=== PATIENT | male | born 1990 | race African-American/Black ===

== ENCOUNTER 2023-01-31 15:56 | Inpatient (IN) | payer OTHER, SELFPAY ==
[2023-01-31 16:26] VITALS: BMI 22.9
[2023-01-31 17:45] LABS: Glucose, Whole Blood 255 mg/dL (60-115)
[2023-01-31 18:00] VITALS: BP 145/88; PULSE 121; TEMP 36.7; O2SAT 100
[2023-01-31] MEDS: Nicotine Polacrilex 2 MG GUM BUCCAL ×2 (20:15→21:55)
[2023-01-31 21:34] LABS: Glucose, Whole Blood 226 mg/dL (60-115)
[2023-01-31 21:47] VITALS: BP 140/94; PULSE 94
[2023-01-31] MEDS: OLANZapine 5 MG TABLET PO (21:49)
[2023-01-31] MEDS: OLANZapine 10 MG TABLET PO (21:49)
[2023-01-31] MEDS: Metoprolol Tartrate 12.5 MG HALFTAB PO (21:49)
[2023-01-31] MEDS: Mirtazapine 7.5 MG TABLET PO (21:49)
[2023-01-31] MEDS: LORazepam 0.5 MG TABLET PO (21:49)
[2023-01-31] MEDS: busPIRone HCl 10 MG TABLET PO (21:49)
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
--- NOTE | 2023-02-01 01:19 | PC.NURSE ---
Patient refused HS sliding scale insulin.
[2023-02-01 06:52] LABS: MANUAL DIFF FLAG NO
[2023-02-01 07:10] LABS: Basophils Percent Auto 0.5 % (0-2); Eosinophils Absolute Auto 0.2 X10*3/uL (0.0-0.4); Eosinophils Percent Auto 2.6 % (0-4); Hematocrit 39.7 % (42.0-52.0); Hemoglobin 13.2 g/dl (14.0-18.0); Imm Gran Abs Auto 0.02 X10*3/uL (0.00-0.03); Imm Gran Pct Auto 0.3 % (0.0-0.4); Lymphocytes Absolute Auto 1.6 X10*3/uL (1.2-4.9); Lymphocytes Percent Auto 23.7 % (20-40); Mean Corpuscular HGB Conc 33.2 g/dl (31.0-36.0); Mean Corpuscular Hemoglobin 27.7 pg (27.0-33.0); Mean Corpuscular Volume 83.4 fL (80.0-98.0); Monocytes Absolute Auto 0.8 X10*3/uL (0.1-1.2); Monocytes Percent Auto 12.5 % (2-11); Neutrophils Percent Auto 60.4 % (45-73); Platelet Count 190 X10*3/uL (160-400); Red Blood Count 4.76 X10*6/uL (4.60-5.80); White Blood Count 6.5 X10*3/uL (4.8-10.8)
[2023-02-01 07:12] LABS: Alanine Aminotransferase 23 U/L (0-40); Alkaline Phosphatase 160 U/L (39-117); Anion Gap 13 (12-20); Aspartate Amino Transferase 19 U/L (5-37); Bilirubin Total 1.3 mg/dL (0.0-1.0); Blood Urea Nitrogen 12 mg/dL (9-16); Calcium 9.4 mg/dL (8.4-10.2); Carbon Dioxide 29 mmol/L (22-29); Chloride 100 mmol/L (96-108); Cholesterol 248 mg/dL; Creatinine Clr Calc Pharmacy 83.5; Estimated Glomerular Filt Rate > 60; Glucose Fasting 251 mg/dL (60-99); HDL Cholesterol 73 mg/dL; LDL Cholesterol Calculated 136 mg/dl; Potassium 4.1 mmol/L (3.3-5.1); Sodium 138 mmol/L (135-145); Total Protein 6.6 g/dL (6.5-8.0); Triglycerides 199 mg/dL
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
[2023-02-01 08:16] LABS: Glucose, Whole Blood 259 mg/dL (60-115)
[2023-02-01] MEDS: Insulin Lispro 100 UNIT/ML 3 ML VIAL SUBCUT ×3 (08:40→21:41)
[2023-02-01] MEDS: busPIRone HCl 10 MG TABLET PO ×3 (08:42→21:42)
[2023-02-01] MEDS: OLANZapine 5 MG TABLET PO ×2 (08:42→21:42)
[2023-02-01] MEDS: LORazepam 0.5 MG TABLET PO ×2 (08:42→21:42)
[2023-02-01] MEDS: metFORMIN HCl 1,000 MG TABLET 1000 MG PO ×2 (08:42→18:18)
[2023-02-01] MEDS: Metoprolol Tartrate 12.5 MG HALFTAB PO ×2 (08:42→21:41)
[2023-02-01] MEDS: glipiZIDE 5 MG TABLET PO (08:42)
[2023-02-01 08:48] VITALS: BP 149/86; PULSE 114; RESP 18; O2SAT 97
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
[2023-02-01 12:28] LABS: Glucose, Whole Blood 81 mg/dL (60-115)
[2023-02-01 16:53] LABS: Glucose, Whole Blood 252 mg/dL (60-115)
[2023-02-01] MEDS: Nicotine Polacrilex 2 MG GUM BUCCAL (18:20)
[2023-02-01 21:36] LABS: Glucose, Whole Blood 246 mg/dL (60-115)
[2023-02-01] MEDS: Mirtazapine 7.5 MG TABLET PO (21:42)
[2023-02-01] MEDS: OLANZapine 10 MG TABLET PO (21:42)
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
--- NOTE | 2023-02-02 02:45 | PC.NURSE ---
pt was seen at 0235 by PA from Emergency Department to remove contact lenses. Hospitalist was notified by PA to be treated for bacterial conjunctivitis in both eyes. Waiting for ointment prescription. Cold compress given to pt.
[2023-02-02 08:31] VITALS: BP 126/70; PULSE 105; RESP 14; TEMP 37.3; O2SAT 99
[2023-02-02] MEDS: Metoprolol Tartrate 12.5 MG HALFTAB PO ×2 (08:32→21:42)
[2023-02-02] MEDS: metFORMIN HCl 1,000 MG TABLET 1000 MG PO ×2 (08:33→17:30)
[2023-02-02] MEDS: OLANZapine 5 MG TABLET PO ×2 (08:33→17:30)
[2023-02-02] MEDS: glipiZIDE 5 MG TABLET PO (08:33)
[2023-02-02] MEDS: LORazepam 0.5 MG TABLET PO ×2 (08:33→21:40)
[2023-02-02] MEDS: busPIRone HCl 10 MG TABLET PO ×3 (08:33→21:40)
[2023-02-02 08:48] LABS: Glucose, Whole Blood 292 mg/dL (60-115)
[2023-02-02] MEDS: Insulin Lispro 100 UNIT/ML 3 ML VIAL SUBCUT ×2 (08:48→17:30)
[2023-02-02] MEDS: Moxifloxacin HCl 0.5 % Oph Sol 3 ML DRPBTL 1 DROP EYE-BOTH ×3 (09:25→22:30)
[2023-02-02] MEDS: Nicotine Polacrilex 2 MG GUM BUCCAL (11:01)
--- NOTE | 2023-02-02 12:39 | HO.PSYCHPN ---
Subjective Subjective Date of Service: 02/02/23 Reason For Visit: Psychosis Interim History: Met with patient; discussed with team; reviewed weekend notes Patient lying in bed, disheveled, eyes closed. Patient reports he was hospitalized in [place] 2 weeks ago for similar reasons. Patient stated, I don't want Joseph to get in trouble. I just want him to leave me alone and not threaten me. This has been going on for 8 months. He keeps hiding so I can never talk to him and the police don't know his last name so they won't do anything. Patient says that he is willing to take any medications to make the voices go way and agrees to increasing Zyprexa. Mental Status Exam Mental Status Exam Narrative: Pt is alert and oriented; behavior is with limited cooperation but polite, calm; patient is not in distress; dressed in casual attire, unkempt hair, disheveled; mood is described as anxious and affect congruent; Poor eye contact, eyes closed during entire interview d/t discomfort ; Speech is normal rate, but softer volume; normal prosody and not pressured; psychomotor retardation present; thought process is goal directed; Thought content is on tx; and paranoia regarding being stalked by his neighbor; denies any SI/HI/VH. Auditory hallucinations present. Patients insight and judgment impaired. Diagnostics Vital Signs (24Hr): Vital Signs - 24 hr 02/02/23 08:31 Temperature 99.1 F Pulse Rate 105 H Respiratory Rate 14 Blood Pressure 126/70 Pulse Oximetry 99 BMI result Body Mass Index 22.9 Labs 02/01/23 06:37 02/01/23 06:37 Labs: Laboratory Results - last 48 hr 01/31/23 01/31/23 02/01/23 17:40 21:28 06:37 WBC 6.5 RBC 4.76 Hgb 13.2 L Hct 39.7 L MCV 83.4 MCH 27.7 MCHC 33.2 RDW 14.0 Plt Count 190 MPV 10.0 Immature Gran % (Auto) 0.3 Neut % (Auto) 60.4 Lymph % (Auto) 23.7 Cecil % (Auto) 12.5 H Eos % (Auto) 2.6 Baso % (Auto) 0.5 Lymph # (Auto) 1.6 Cecil # (Auto) 0.8 Eos # (Auto) 0.2 Baso # (Auto) 0.0 Abs Immat Gran (auto) 0.02 Absolute Neuts (auto) 4.0 Absolute Nucleated RBC 0.000 Nucleated RBC % (auto) 0.0 Sodium Potassium Chloride Carbon Dioxide Anion Gap BUN Creatinine Estim Creat Clear Calc Estimated GFR POC Glucose 255 H 226 H Fasting Glucose Calcium Total Bilirubin AST ALT Alkaline Phosphatase Total Protein Albumin Triglycerides Cholesterol LDL Cholesterol, Calc HDL Cholesterol 02/01/23 02/01/23 02/01/23 06:37 08:11 12:18 WBC RBC Hgb Hct MCV MCH MCHC RDW Plt Count MPV Immature Gran % (Auto) Neut % (Auto) Lymph % (Auto) Cecil % (Auto) Eos % (Auto) Baso % (Auto) Lymph # (Auto) Cecil # (Auto) Eos # (Auto) Baso # (Auto) Abs Immat Gran (auto) Absolute Neuts (auto) Absolute Nucleated RBC Nucleated RBC % (auto) Sodium 138 Potassium 4.1 Chloride 100 Carbon Dioxide 29 Anion Gap 13 BUN 12 Creatinine 1.24 Estim Creat Clear Calc 83.5 Estimated GFR > 60 POC Glucose 259 H 81 Fasting Glucose 251 H Calcium 9.4 Total Bilirubin 1.3 H AST 19 ALT 23 Alkaline Phosphatase 160 H Total Protein 6.6 Albumin 4.0 Triglycerides 199 Cholesterol 248 LDL Cholesterol, Calc 136 HDL Cholesterol 73 02/01/23 02/01/23 02/02/23 16:47 21:32 08:37 WBC RBC Hgb Hct MCV MCH MCHC RDW Plt Count MPV Immature Gran % (Auto) Neut % (Auto) Lymph % (Auto) Cecil % (Auto) Eos % (Auto) Baso % (Auto) Lymph # (Auto) Cecil # (Auto) Eos # (Auto) Baso # (Auto) Abs Immat Gran (auto) Absolute Neuts (auto) Absolute Nucleated RBC Nucleated RBC % (auto) Sodium Potassium Chloride Carbon Dioxide Anion Gap BUN Creatinine Estim Creat Clear Calc Estimated GFR POC Glucose 252 H 246 H 292 H Fasting Glucose Calcium Total Bilirubin AST ALT Alkaline Phosphatase Total Protein Albumin Triglycerides Cholesterol LDL Cholesterol, Calc HDL Cholesterol Medications Medications Current Medications Acetaminophen (Acetaminophen 325 Mg Tablet) 650 mg PO Q6H PRN PRN Reason: Headache/Pain Mild Scale (1-3) Al Hydroxide/Mg Hydroxide (Magnesium Hydrox/Alum Hydrox 30 Ml Oral.Susp) 30 ml PO Q6H PRN PRN Reason: Heartburn/Nausea Buspirone HCl (Buspirone Hcl 10 Mg Tablet) 10 mg PO TID [facility] Last Admin: 02/02/23 08:33 Dose: 10 mg Chlorpromazine HCl (Chlorpromazine Hcl 25 Mg Tablet) 150 mg PO BEDTIME PRN PRN Reason: Agitation Clonidine HCl (Clonidine Hcl 0.1 Mg Tablet) 0.1 mg PO BID PRN; Protocol PRN Reason: anxiety Glipizide (Glipizide 5 Mg Tablet) 5 mg PO DAILY [facility] Last Admin: 02/02/23 08:33 Dose: 5 mg Hydroxyzine HCl (Hydroxyzine Hcl 25 Mg Tablet) 25 mg PO Q6H PRN PRN Reason: Anxiety Insulin Human Lispro (Insulin Lispro 100 Unit/Ml 3 Ml Vial) 0 unit SUBCUT QIDACHS [facility]; Protocol Last Admin: 02/02/23 08:48 Dose: 6 unit Lorazepam (Lorazepam 0.5 Mg Tablet) 0.5 mg PO BID [facility] Last Admin: 02/02/23 08:33 Dose: 0.5 mg Magnesium Hydroxide (Milk Of Magnesia 30 Ml Oral.Susp) 30 ml PO DAILY PRN PRN Reason: Constipation Melatonin (Melatonin 3 Mg Tablet) 6 mg PO BEDTIME PRN PRN Reason: insomnia Metformin HCl (Metformin Hcl 1,000 Mg Tablet) 1,000 mg PO BIDWM [facility] Last Admin: 02/02/23 08:33 Dose: 1,000 mg Metoprolol Tartrate (Metoprolol Tartrate 12.5 Mg Halftab) 12.5 mg PO BID [facility]; Protocol Last Admin: 02/02/23 08:32 Dose: 12.5 mg Mirtazapine (Mirtazapine 7.5 Mg Tablet) 7.5 mg PO BEDTIME [facility] Last Admin: 02/01/23 21:42 Dose: 7.5 mg Moxifloxacin HCl (Moxifloxacin Hcl 0.5 % Oph Stephania 3 Ml Drpbtl) 1 drop EYE-BOTH TID [facility] Stop: 02/09/23 02:58 Last Admin: 02/02/23 09:25 Dose: 1 drop Nicotine Polacrilex (Nicotine Polacrilex 2 Mg Gum) 2 mg BUCCAL Q2H PRN PRN Reason: Nicotine Cravings Last Admin: 02/02/23 11:01 Dose: 2 mg Olanzapine (Olanzapine 10 Mg Tablet) 20 mg PO BEDTIME [facility] Olanzapine (Olanzapine 5 Mg Tablet) 5 mg PO BID@0900,1700 [facility] Trazodone HCl (Trazodone Hcl 50 Mg Tablet) 50 mg PO BEDTIME MRX1 PRN PRN Reason: Insomnia Allergies Allergies Allergy/AdvReac Type Severity Reaction Status Date / Time Pet Dander Allergy Unknown Uncoded 01/31/23 16:26 Assessment & Plan Assessment & Plan (1) Psychosis: Status: Acute Code(s): F29 - Unspecified psychosis not due to a substance or known physiological condition Plan Patient is a 32-year-old man with history of psychosis, paranoid ideations, possible schizophrenia with recent medication noncompliance because of not having any establish connections to any mental health centers even though he was referred to see a so upon his discharge from [facility].? He has been experiencing anxiety and paranoia recently, leading to his coming to the emergency room.?His medications were resumed with the exception of Geodon. Hospital course: 02/02 patient with psychotic symptoms, paranoid delusions and AH; asking for medications to get rid of AH; patient was already started on Zyprexa so will maximize this medication and see if it is effective; otherwise will switch medications to something that can also be used as a long-acting injectable. Will leave Thorazine as a p.r.n. for now Plan: CV Q 15 minute checks Increase Zyprexa to 20 mg q.h.s. Add Zyprexa 5 mg b.i.d.at 0900 and 1700. Continue mirtazapine 7.5 mg q.h.s. Continue BuSpar Continue insulin sliding scale Continue glipizide Continue metformin Obtain collateral Obtain outpatient prescriber and therapist. Patient educated on: diagnosis and medication risk/benefits Informed Consent: understands and further education needed Reason for continued inpatient stay Substantial Risk for: rapid decompensation Time Spent With Patient Time: Total time managing care of this patient today ____ minutes.
[2023-02-02 16:30] VITALS: BP 134/80; PULSE 108; TEMP 37.1
[2023-02-02 17:16] LABS: Glucose, Whole Blood 233 mg/dL (60-115)
[2023-02-02 21:20] LABS: Glucose, Whole Blood 158 mg/dL (60-115)
[2023-02-02] MEDS: Melatonin 3 MG TABLET 6 MG PO (21:40)
[2023-02-02] MEDS: Mirtazapine 7.5 MG TABLET PO (21:41)
[2023-02-02] MEDS: OLANZapine 10 MG TABLET 20 MG PO (21:41)
[2023-02-02 23:42] VITALS: BP 128/84; PULSE 126; TEMP 37
[2023-02-03 07:57] LABS: Glucose, Whole Blood 257 mg/dL (60-115)
[2023-02-03] MEDS: Insulin Lispro 100 UNIT/ML 3 ML VIAL SUBCUT ×4 (08:44→20:49)
[2023-02-03 08:45] VITALS: BP 115/62; PULSE 124; RESP 18; TEMP 37; O2SAT 97
[2023-02-03] MEDS: LORazepam 0.5 MG TABLET PO ×2 (08:45→20:24)
[2023-02-03] MEDS: glipiZIDE 5 MG TABLET PO (08:45)
[2023-02-03] MEDS: Metoprolol Tartrate 12.5 MG HALFTAB PO ×2 (08:46→20:22)
[2023-02-03] MEDS: metFORMIN HCl 1,000 MG TABLET 1000 MG PO ×2 (08:46→17:57)
[2023-02-03] MEDS: OLANZapine 5 MG TABLET PO ×2 (08:46→17:57)
[2023-02-03] MEDS: Moxifloxacin HCl 0.5 % Oph Sol 3 ML DRPBTL 1 DROP EYE-BOTH ×3 (08:46→20:31)
[2023-02-03] MEDS: busPIRone HCl 10 MG TABLET PO ×3 (08:46→20:27)
--- NOTE | 2023-02-03 10:00 | P.PNPSI_ITS ---
Subjective Subjective Date of Service: 02/03/23 Reason For Visit: Psychosis Interim History: met with patient; discussed with team; discussed with CONE PICKER Remains in bed, keeping himself. AH remain; he says maybe a little better; he slept better last night partly due to feeling safe despite threats from Joseph whom he believes is stalking him. Eyes little better. Asks for different med due to continued voices but agrees to give Zyprexa another day. Mental Status Exam Mental Status Exam Narrative: Pt is alert and oriented; behavior is with limited cooperation but polite, calm; patient is not in distress; dressed in casual attire, unkempt hair, disheveled; mood is described as ok and affect congruent; Poor eye contact, eyes closed during entire interview d/t discomfort ; Speech is normal rate, but softer volume; normal prosody and not pressured; psychomotor retardation present; thought process is goal directed; Thought content is on tx; and paranoia regarding being stalked by his neighbor; denies any SI/HI/VH. Auditory hallucinations present. Patients insight and judgment impaired. Diagnostics Vital Signs (24Hr): Vital Signs - 24 hr 02/02/23 16:30 02/02/23 23:42 02/03/23 08:45 Temperature 98.8 F 98.6 F 98.6 F Pulse Rate 108 H 126 H 124 H Respiratory Rate 18 Blood Pressure 134/80 128/84 115/62 Pulse Oximetry 97 Oxygen Delivery Method Room Air BMI result Body Mass Index 22.9 Labs 02/01/23 06:37 02/01/23 06:37 Labs: Laboratory Results - last 48 hr 02/01/23 02/01/23 02/01/23 12:18 16:47 21:32 POC Glucose 81 252 H 246 H 02/02/23 02/02/23 02/02/23 08:37 17:06 21:12 POC Glucose 292 H 233 H 158 H 02/03/23 07:49 POC Glucose 257 H Medications Medications Current Medications Acetaminophen (Acetaminophen 325 Mg Tablet) 650 mg PO Q6H PRN PRN Reason: Headache/Pain Mild Scale (1-3) Al Hydroxide/Mg Hydroxide (Magnesium Hydrox/Alum Hydrox 30 Ml Oral.Susp) 30 ml PO Q6H PRN PRN Reason: Heartburn/Nausea Buspirone HCl (Buspirone Hcl 10 Mg Tablet) 10 mg PO TID [facility] Last Admin: 02/03/23 08:46 Dose: 10 mg Chlorpromazine HCl (Chlorpromazine Hcl 25 Mg Tablet) 150 mg PO BEDTIME PRN PRN Reason: Agitation Clonidine HCl (Clonidine Hcl 0.1 Mg Tablet) 0.1 mg PO BID PRN; Protocol PRN Reason: anxiety Glipizide (Glipizide 5 Mg Tablet) 5 mg PO DAILY [facility] Last Admin: 02/03/23 08:45 Dose: 5 mg Hydroxyzine HCl (Hydroxyzine Hcl 25 Mg Tablet) 25 mg PO Q6H PRN PRN Reason: Anxiety Insulin Human Lispro (Insulin Lispro 100 Unit/Ml 3 Ml Vial) 0 unit SUBCUT QIDACHS [facility]; Protocol Last Admin: 02/03/23 08:44 Dose: 6 unit Lorazepam (Lorazepam 0.5 Mg Tablet) 0.5 mg PO BID [facility] Last Admin: 02/03/23 08:45 Dose: 0.5 mg Magnesium Hydroxide (Milk Of Magnesia 30 Ml Oral.Susp) 30 ml PO DAILY PRN PRN Reason: Constipation Melatonin (Melatonin 3 Mg Tablet) 6 mg PO BEDTIME PRN PRN Reason: insomnia Last Admin: 02/02/23 21:40 Dose: 6 mg Metformin HCl (Metformin Hcl 1,000 Mg Tablet) 1,000 mg PO BIDWM [facility] Last Admin: 02/03/23 08:46 Dose: 1,000 mg Metoprolol Tartrate (Metoprolol Tartrate 12.5 Mg Halftab) 12.5 mg PO BID [facility]; Protocol Last Admin: 02/03/23 08:46 Dose: 12.5 mg Mirtazapine (Mirtazapine 7.5 Mg Tablet) 7.5 mg PO BEDTIME [facility] Last Admin: 02/02/23 21:41 Dose: 7.5 mg Moxifloxacin HCl (Moxifloxacin Hcl 0.5 % Oph Stephania 3 Ml Drpbtl) 1 drop EYE-BOTH TID [facility] Stop: 02/09/23 02:58 Last Admin: 02/03/23 08:46 Dose: 1 drop Nicotine Polacrilex (Nicotine Polacrilex 2 Mg Gum) 2 mg BUCCAL Q2H PRN PRN Reason: Nicotine Cravings Last Admin: 02/02/23 11:01 Dose: 2 mg Olanzapine (Olanzapine 10 Mg Tablet) 20 mg PO BEDTIME [facility] Last Admin: 02/02/23 21:41 Dose: 20 mg Olanzapine (Olanzapine 5 Mg Tablet) 5 mg PO BID@0900,1700 [facility] Last Admin: 02/03/23 08:46 Dose: 5 mg Trazodone HCl (Trazodone Hcl 50 Mg Tablet) 50 mg PO BEDTIME MRX1 PRN PRN Reason: Insomnia Allergies Allergies Allergy/AdvReac Type Severity Reaction Status Date / Time Pet Dander Allergy Unknown Uncoded 01/31/23 16:26 Assessment & Plan Assessment & Plan (1) Psychosis: Status: Acute Code(s): F29 - Unspecified psychosis not due to a substance or known physiological condition Plan Patient is a 32-year-old man with history of psychosis, paranoid ideations, possible schizophrenia with recent medication noncompliance because of not having any establish connections to any mental health centers even though he was referred to see a so upon his discharge from [facility].? He has been experiencing anxiety and paranoia recently, leading to his coming to the emergency room.?His medications were resumed with the exception of Geodon. Hospital course: 02/02 patient with psychotic symptoms, paranoid delusions and AH; asking for medications to get rid of AH; patient was already started on Zyprexa so will maximize this medication and see if it is effective; otherwise will switch medications to something that can also be used as a long-acting injectable. Will leave Thorazine as a p.r.n. for now 02/03 patient says maybe AH is a little better but they remain in the quite problematic. Still delusional. He agrees to continue with Zyprexa for another day. Plan: CV Q 15 minute checks Continue Zyprexa to 20 mg q.h.s. Continue Zyprexa 5 mg b.i.d.at 0900 and 1700. Continue mirtazapine 7.5 mg q.h.s. Continue BuSpar Continue insulin sliding scale Continue glipizide Continue metformin Obtain collateral Obtain outpatient prescriber and therapist. Patient educated on: diagnosis Informed Consent: understands and further education needed Reason for continued inpatient stay Substantial Risk for: rapid decompensation and med/psych decompensation Time Spent With Patient Time: Total time managing care of this patient today ____ minutes.
[2023-02-03 12:09] LABS: Glucose, Whole Blood 183 mg/dL (60-115)
[2023-02-03 17:03] LABS: Glucose, Whole Blood 172 mg/dL (60-115)
[2023-02-03] MEDS: Nicotine Polacrilex 2 MG GUM BUCCAL ×2 (17:58→20:23)
[2023-02-03] MEDS: Acetaminophen 325 MG TABLET 650 MG PO (20:23)
[2023-02-03] MEDS: OLANZapine 10 MG TABLET 20 MG PO (20:23)
[2023-02-03] MEDS: Melatonin 3 MG TABLET 6 MG PO (20:24)
[2023-02-03] MEDS: Mirtazapine 7.5 MG TABLET PO (20:24)
[2023-02-03 20:25] VITALS: BP 133/65; PULSE 132; TEMP 37.1; O2SAT 99
[2023-02-03] MEDS: hydrOXYzine HCL 25 MG TABLET PO (20:35)
[2023-02-03] MEDS: cloNIDine HCL 0.1 MG TABLET PO (20:35)
[2023-02-03 20:47] LABS: Glucose, Whole Blood 207 mg/dL (60-115)
--- NOTE | 2023-02-03 23:48 | PC.NURSE ---
Pt submitted a Three Day Notice on Thursday02/03/2023, up on Thursday02/06/2023.
--- NOTE | 2023-02-04 00:08 | PC.NURSE ---
Patient was noted to have a resting HR of 132. Dr. Morin notified via text, no further orders received. Information passed onto warehouse worker 2nd shift.
[2023-02-04 09:40] VITALS: BP 106/60; PULSE 96; RESP 16; TEMP 37; O2SAT 98
[2023-02-04] MEDS: busPIRone HCl 10 MG TABLET PO ×3 (09:41→21:01)
[2023-02-04] MEDS: metFORMIN HCl 1,000 MG TABLET 1000 MG PO ×2 (09:41→18:38)
[2023-02-04] MEDS: Metoprolol Tartrate 12.5 MG HALFTAB PO ×2 (09:41→21:01)
[2023-02-04] MEDS: OLANZapine 5 MG TABLET PO (09:41)
[2023-02-04] MEDS: glipiZIDE 5 MG TABLET PO (09:41)
[2023-02-04] MEDS: LORazepam 0.5 MG TABLET PO ×2 (09:41→21:02)
[2023-02-04] MEDS: Acetaminophen 325 MG TABLET 650 MG PO (09:52)
[2023-02-04] MEDS: Moxifloxacin HCl 0.5 % Oph Sol 3 ML DRPBTL 1 DROP EYE-BOTH ×3 (09:52→21:06)
--- NOTE | 2023-02-04 09:56 | HO.PSYCHPN ---
Subjective Subjective Date of Service: 02/04/23 Reason For Visit: Psychosis Interim History: pt seen; discussed with team pt little more able/willing to engage. Pt reports continued troublesome AH; remains w/ paranoid delusions. Agrees to dc zyprexa and start Haldol. Discussed 3 day notice; says he was confused thinking staff was going to discharge him so he asked to sign 3 day. Pt understands this was not intention. Infection Prevention Specialist explains that he will like need longer time on unit for treatment; pt says he will consider retracting 3 day. Mental Status Exam Mental Status Exam Narrative: Pt is alert and oriented; behavior is cooperative, polite, calm, remains w/ eyes closed; patient is not in distress; dressed in casual attire, unkempt hair, disheveled; mood is described as ok and affect congruent; Poor eye contact-eyes remain closed d/t discomfort ; Speech is normal rate, but softer volume; normal prosody and not pressured; psychomotor retardation present; thought process is goal directed; Thought content is on tx; and paranoia regarding being stalked by his neighbor; denies any SI/HI/VH. Auditory hallucinations present. Patients insight and judgment impaired. Diagnostics Vital Signs (24Hr): Vital Signs - 24 hr 02/03/23 20:25 02/04/23 09:40 Temperature 98.7 F 98.6 F Pulse Rate 132 H 96 Respiratory Rate 16 Blood Pressure 133/65 106/60 Pulse Oximetry 99 98 Oxygen Delivery Method Room Air Room Air BMI result Body Mass Index 22.9 Labs 02/01/23 06:37 02/01/23 06:37 Labs: Laboratory Results - last 48 hr 02/02/23 02/02/23 02/03/23 17:06 21:12 07:49 POC Glucose 233 H 158 H 257 H 02/03/23 02/03/23 02/03/23 12:05 16:59 20:43 POC Glucose 183 H 172 H 207 H Medications Medications Current Medications Acetaminophen (Acetaminophen 325 Mg Tablet) 650 mg PO Q6H PRN PRN Reason: Headache/Pain Mild Scale (1-3) Last Admin: 02/04/23 09:52 Dose: 650 mg Al Hydroxide/Mg Hydroxide (Magnesium Hydrox/Alum Hydrox 30 Ml Oral.Susp) 30 ml PO Q6H PRN PRN Reason: Heartburn/Nausea Buspirone HCl (Buspirone Hcl 10 Mg Tablet) 10 mg PO TID [facility] Last Admin: 02/04/23 09:41 Dose: 10 mg Chlorpromazine HCl (Chlorpromazine Hcl 25 Mg Tablet) 150 mg PO BEDTIME PRN PRN Reason: Agitation Clonidine HCl (Clonidine Hcl 0.1 Mg Tablet) 0.1 mg PO BID PRN; Protocol PRN Reason: anxiety Last Admin: 02/03/23 20:35 Dose: 0.1 mg Glipizide (Glipizide 5 Mg Tablet) 5 mg PO DAILY [facility] Last Admin: 02/04/23 09:41 Dose: 5 mg Hydroxyzine HCl (Hydroxyzine Hcl 25 Mg Tablet) 25 mg PO Q6H PRN PRN Reason: Anxiety Last Admin: 02/03/23 20:35 Dose: 25 mg Insulin Human Lispro (Insulin Lispro 100 Unit/Ml 3 Ml Vial) 0 unit SUBCUT QIDACHS [facility]; Protocol Last Admin: 02/04/23 09:41 Dose: Not Given Lorazepam (Lorazepam 0.5 Mg Tablet) 0.5 mg PO BID [facility] Last Admin: 02/04/23 09:41 Dose: 0.5 mg Magnesium Hydroxide (Milk Of Magnesia 30 Ml Oral.Susp) 30 ml PO DAILY PRN PRN Reason: Constipation Melatonin (Melatonin 3 Mg Tablet) 6 mg PO BEDTIME PRN PRN Reason: insomnia Last Admin: 02/03/23 20:24 Dose: 6 mg Metformin HCl (Metformin Hcl 1,000 Mg Tablet) 1,000 mg PO BIDWM [facility] Last Admin: 02/04/23 09:41 Dose: 1,000 mg Metoprolol Tartrate (Metoprolol Tartrate 12.5 Mg Halftab) 12.5 mg PO BID [facility]; Protocol Last Admin: 02/04/23 09:41 Dose: 12.5 mg Mirtazapine (Mirtazapine 7.5 Mg Tablet) 7.5 mg PO BEDTIME [facility] Last Admin: 02/03/23 20:24 Dose: 7.5 mg Moxifloxacin HCl (Moxifloxacin Hcl 0.5 % Oph Stephania 3 Ml Drpbtl) 1 drop EYE-BOTH TID [facility] Stop: 02/09/23 02:58 Last Admin: 02/04/23 09:52 Dose: 1 drop Nicotine Polacrilex (Nicotine Polacrilex 2 Mg Gum) 2 mg BUCCAL Q2H PRN PRN Reason: Nicotine Cravings Last Admin: 02/03/23 20:23 Dose: 2 mg Olanzapine (Olanzapine 10 Mg Tablet) 20 mg PO BEDTIME [facility] Last Admin: 02/03/23 20:23 Dose: 20 mg Olanzapine (Olanzapine 5 Mg Tablet) 5 mg PO BID@0900,1700 [facility] Last Admin: 02/04/23 09:41 Dose: 5 mg Trazodone HCl (Trazodone Hcl 50 Mg Tablet) 50 mg PO BEDTIME MRX1 PRN PRN Reason: Insomnia Allergies Allergies Allergy/AdvReac Type Severity Reaction Status Date / Time Pet Dander Allergy Unknown Uncoded 01/31/23 16:26 Assessment & Plan Assessment & Plan (1) Psychosis: Status: Acute Code(s): F29 - Unspecified psychosis not due to a substance or known physiological condition Plan Patient is a 32-year-old man with history of psychosis, paranoid ideations, possible schizophrenia with recent medication noncompliance because of not having any establish connections to any mental health centers even though he was referred to see a so upon his discharge from [facility].? He has been experiencing anxiety and paranoia recently, leading to his coming to the emergency room.?His medications were resumed with the exception of Geodon. Hospital course: 02/02 patient with psychotic symptoms, paranoid delusions and AH; asking for medications to get rid of AH; patient was already started on Zyprexa so will maximize this medication and see if it is effective; otherwise will switch medications to something that can also be used as a long-acting injectable. Will leave Thorazine as a p.r.n. for now 02/03 patient says maybe AH is a little better but they remain in the quite problematic. Still delusional. He agrees to continue with Zyprexa for another day. 02/04 continued AH and delusional thinking; dc zyprexa and start Haldol Plan: CV Q 15 minute checks DCZyprexa Start [id number] BID (chosen since also comes in [facility]) Continue mirtazapine 7.5 mg q.h.s. Continue BuSpar Continue insulin sliding scale Continue glipizide Continue metformin Obtain collateral Obtain outpatient prescriber and therapist. Patient educated on: diagnosis and medication risk/benefits Informed Consent: understands and further education needed Reason for continued inpatient stay Substantial Risk for: inability to function Time Spent With Patient Time: Total time managing care of this patient today ____ minutes.
[2023-02-04] MEDS: HaloperidoL 5 MG TABLET PO ×2 (12:07→21:02)
[2023-02-04 12:18] LABS: Glucose, Whole Blood 143 mg/dL (60-115)
[2023-02-04] MEDS: Ibuprofen 600 MG TABLET PO (13:06)
[2023-02-04] MEDS: Nicotine Polacrilex 2 MG GUM 4 MG BUCCAL ×2 (13:21→15:25)
[2023-02-04 17:25] LABS: Glucose, Whole Blood 184 mg/dL (60-115)
[2023-02-04 18:00] VITALS: BP 106/74; PULSE 97; TEMP 36.9; O2SAT 98
[2023-02-04] MEDS: hydrOXYzine HCL 50 MG TABLET PO (18:14)
[2023-02-04] MEDS: Insulin Lispro 100 UNIT/ML 3 ML VIAL SUBCUT ×2 (18:39→20:59)
--- NOTE | 2023-02-04 19:12 | PC.NURSE ---
This writer editor encouraged patient to retract his 3 day notice. However, patient does not want to be in the hospital over the weekend. He did inquire about his medication changes and this writer editor explained that the effectiveness may take a few days, and being in the hospital would allow him to report his response to the medications. Patient still reluctant to retract 3 day.
[2023-02-04] MEDS: Mirtazapine 7.5 MG TABLET PO (21:01)
[2023-02-04] MEDS: Melatonin 3 MG TABLET 6 MG PO (21:01)
[2023-02-04 21:54] LABS: Glucose, Whole Blood 227 mg/dL (60-115)
[2023-02-05] MEDS: Ibuprofen 600 MG TABLET PO ×2 (05:55→14:45)
[2023-02-05] MEDS: Acetaminophen 325 MG TABLET 650 MG PO ×2 (05:55→14:44)
[2023-02-05 07:00] VITALS: BMI 21.1
[2023-02-05 08:29] LABS: Glucose, Whole Blood 220 mg/dL (60-115)
[2023-02-05 08:55] VITALS: BP 99/60; PULSE 88; RESP 15; TEMP 36.7; O2SAT 98
[2023-02-05] MEDS: HaloperidoL 5 MG TABLET PO ×2 (08:57→14:44)
[2023-02-05] MEDS: metFORMIN HCl 1,000 MG TABLET 1000 MG PO ×2 (08:57→16:17)
[2023-02-05] MEDS: LORazepam 0.5 MG TABLET PO ×2 (08:57→19:58)
[2023-02-05] MEDS: busPIRone HCl 10 MG TABLET PO ×3 (08:57→19:58)
[2023-02-05] MEDS: Metoprolol Tartrate 12.5 MG HALFTAB PO ×2 (08:57→19:57)
[2023-02-05] MEDS: glipiZIDE 5 MG TABLET PO (08:57)
[2023-02-05] MEDS: Moxifloxacin HCl 0.5 % Oph Sol 3 ML DRPBTL 1 DROP EYE-BOTH ×3 (09:00→20:31)
[2023-02-05] MEDS: Insulin Lispro 100 UNIT/ML 3 ML VIAL SUBCUT ×3 (09:00→20:34)
--- NOTE | 2023-02-05 10:16 | P.PNPSI_ITS ---
Subjective Subjective Date of Service: 02/05/23 Reason For Visit: Psychosis Interim History: met with patient; discussed with team pt reports AH remain; he thinks maybe AH are a little less though they are still very bothersome. Paranoid delusions remain; he does however think haldol is more helpful than zyprexa and says his anxiety is much lower. Of note, pt is now in the milue, more social more talkative, eyes open. He asks for Haldol to be increased beyond 15mg totally daily dose wanting to know antony if this med will be effective. Othewisek pt would like to try Clozapine. retracted 3 day notice. Mental Status Exam Mental Status Exam Narrative: Pt is alert and oriented; behavior is cooperative, polite, calm; patient is not in distress; dressed in casual attire, unkempt hair, still disheveled; mood is described as ok and affect congruent, more naturally expressive; eye contact appropriate (no longer closed); Speech is normal rate, volume; normal prosody and not pressured; some psychomotor retardation present; thought process is goal directed; Thought content is on tx; and paranoia regarding being stalked by his neighbor; denies any SI/HI/VH. Auditory hallucinations present. Patients insight and judgment impaired but improved. Diagnostics Vital Signs (24Hr): Vital Signs - 24 hr 02/04/23 18:00 02/05/23 08:55 Temperature 98.4 F 98.1 F Pulse Rate 97 88 Respiratory Rate 15 Blood Pressure 106/74 99/60 Pulse Oximetry 98 98 Oxygen Delivery Method Room Air Room Air BMI result Body Mass Index 22.9 Labs 02/01/23 06:37 02/01/23 06:37 Labs: Laboratory Results - last 48 hr 02/03/23 02/03/23 02/03/23 12:05 16:59 20:43 POC Glucose 183 H 172 H 207 H 02/04/23 02/04/23 02/04/23 12:11 17:20 20:50 POC Glucose 143 H 184 H 227 H 02/05/23 08:25 POC Glucose 220 H Medications Medications Current Medications Acetaminophen (Acetaminophen 325 Mg Tablet) 650 mg PO Q6H PRN PRN Reason: Headache/Pain Mild Scale (1-3) Last Admin: 02/05/23 05:55 Dose: 650 mg Al Hydroxide/Mg Hydroxide (Magnesium Hydrox/Alum Hydrox 30 Ml Oral.Susp) 30 ml PO Q6H PRN PRN Reason: Heartburn/Nausea Buspirone HCl (Buspirone Hcl 10 Mg Tablet) 10 mg PO TID [facility] Last Admin: 02/05/23 08:57 Dose: 10 mg Clonidine HCl (Clonidine Hcl 0.1 Mg Tablet) 0.1 mg PO BID PRN; Protocol PRN Reason: anxiety Last Admin: 02/03/23 20:35 Dose: 0.1 mg Diphenhydramine HCl (Diphenhydramine Hcl 25 Mg Capsule) 50 mg PO Q6H PRN PRN Reason: EPS/Dystonia Glipizide (Glipizide 5 Mg Tablet) 5 mg PO DAILY [facility] Last Admin: 02/05/23 08:57 Dose: 5 mg Haloperidol (Haloperidol 5 Mg Tablet) 5 mg PO BID [facility] Last Admin: 02/05/23 08:57 Dose: 5 mg Hydroxyzine HCl (Hydroxyzine Hcl 50 Mg Tablet) 50 mg PO Q6H PRN PRN Reason: Anxiety Last Admin: 02/04/23 18:14 Dose: 50 mg Ibuprofen (Ibuprofen 600 Mg Tablet) 600 mg PO Q8H PRN PRN Reason: Pain, Mild (Pain Scale 1-3) Last Admin: 02/05/23 05:55 Dose: 600 mg Insulin Human Lispro (Insulin Lispro 100 Unit/Ml 3 Ml Vial) 0 unit SUBCUT QIDAS [facility]; Protocol Last Admin: 02/05/23 09:00 Dose: 4 unit Lorazepam (Lorazepam 0.5 Mg Tablet) 0.5 mg PO BID [facility] Last Admin: 02/05/23 08:57 Dose: 0.5 mg Magnesium Hydroxide (Milk Of Magnesia 30 Ml Oral.Susp) 30 ml PO DAILY PRN PRN Reason: Constipation Melatonin (Melatonin 3 Mg Tablet) 6 mg PO BEDTIME PRN PRN Reason: insomnia Last Admin: 02/04/23 21:01 Dose: 6 mg Metformin HCl (Metformin Hcl 1,000 Mg Tablet) [facility] Last Admin: 02/05/23 08:57 Dose: 1,000 mg Metoprolol Tartrate (Metoprolol Tartrate 12.5 Mg Halftab) 12.5 mg PO BID [facility]; Protocol Last Admin: 02/05/23 08:57 Dose: 12.5 mg Mirtazapine (Mirtazapine 7.5 Mg Tablet) 7.5 mg PO BEDTIME [facility] Last Admin: 02/04/23 21:01 Dose: 7.5 mg Moxifloxacin HCl (Moxifloxacin Hcl 0.5 % Oph Stephania 3 Ml Drpbtl) 1 drop EYE-BOTH TID [facility] Stop: 02/09/23 02:58 Last Admin: 02/05/23 09:00 Dose: 1 drop Nicotine Polacrilex (Nicotine Polacrilex 2 Mg Gum) 4 mg BUCCAL Q2H PRN PRN Reason: Nicotine Cravings Last Admin: 02/04/23 15:25 Dose: 4 mg Trazodone HCl (Trazodone Hcl 50 Mg Tablet) 50 mg PO BEDTIME MRX1 PRN PRN Reason: Insomnia Allergies Allergies Allergy/AdvReac Type Severity Reaction Status Date / Time Pet Dander Allergy Unknown Uncoded 01/31/23 16:26 Assessment & Plan Assessment & Plan (1) Psychosis: Status: Acute Code(s): F29 - Unspecified psychosis not due to a substance or known physiological condition Plan Patient is a 32-year-old man with history of psychosis, paranoid ideations, possible schizophrenia with recent medication noncompliance because of not having any establish connections to any mental health centers even though he was referred to see a so upon his discharge from [facility].? He has been experiencing anxiety and paranoia recently, leading to his coming to the emergency room.?His medications were resumed with the exception of Geodon. Hospital course: 02/02 patient with psychotic symptoms, paranoid delusions and AH; asking for medications to get rid of AH; patient was already started on Zyprexa so will maximize this medication and see if it is effective; otherwise will switch medications to something that can also be used as a long-acting injectable. Will leave Thorazine as a p.r.n. for now 02/03 patient says maybe AH is a little better but they remain in the quite problematic. Still delusional. He agrees to continue with Zyprexa for another day. 02/04 continued AH and delusional thinking; dc zyprexa and start Haldol 02/05 pt reports AH remains; he thinks maybe AH are a little less though they are still very bothersome. Paranoid delusions remain; he does however think haldol is more helpful than zyprexa and says his anxiety is much lower. Of note, pt is now in the mil[place], more social more talkative, eyes open. He asks for Haldol to be increased beyond 15mg totally daily dose wanting to know antony if this med will be effective. Othewisek pt would like to try Clozapine.?-ordered CBC. Pt agreed to remain on unit for further stabilization, possible med titration and to ensure aftercare established, Plan: 3 day; retracted but placed another one Q 15 minute checks DCZyprexa Increase to Haldol 10 mg BID (pt did not want to triffle w/ longer titration) Continue mirtazapine 7.5 mg q.h.s. Continue BuSpar Continue insulin sliding scale Continue glipizide Continue metformin Obtain outpatient prescriber and therapist. Patient educated on: diagnosis and medication risk/benefits Informed Consent: understands, does not understand and further education needed Reason for continued inpatient stay Substantial Risk for: stable for discharge and rapid decompensation Time Spent With Patient Time: Total time managing care of this patient today ____ minutes.
[2023-02-05 13:00] LABS: Glucose, Whole Blood 155 mg/dL (60-115)
[2023-02-05 16:00] LABS: Glucose, Whole Blood 225 mg/dL (60-115)
[2023-02-05] MEDS: hydrOXYzine HCL 50 MG TABLET PO (16:17)
[2023-02-05 18:00] VITALS: BP 99/68; PULSE 89; RESP 15; TEMP 36.1; O2SAT 97
[2023-02-05] MEDS: HaloperidoL 5 MG TABLET 10 MG PO (19:58)
[2023-02-05] MEDS: Mirtazapine 7.5 MG TABLET PO (19:58)
[2023-02-05 20:27] LABS: Glucose, Whole Blood 163 mg/dL (60-115)
[2023-02-06 06:00] VITALS: BP 116/65; PULSE 110; RESP 14; TEMP 36.8
[2023-02-06 08:15] LABS: Glucose, Whole Blood 176 mg/dL (60-115)
[2023-02-06] MEDS: Metoprolol Tartrate 12.5 MG HALFTAB PO ×2 (08:22→20:17)
[2023-02-06] MEDS: HaloperidoL 5 MG TABLET 10 MG PO ×2 (08:22→20:17)
[2023-02-06] MEDS: glipiZIDE 5 MG TABLET PO (08:22)
[2023-02-06] MEDS: metFORMIN HCl 1,000 MG TABLET 1000 MG PO ×2 (08:22→17:39)
[2023-02-06 08:28] LABS: MANUAL DIFF FLAG NO
[2023-02-06 08:31] LABS: Basophils Percent Auto 0.6 % (0-2); Eosinophils Absolute Auto 0.1 X10*3/uL (0.0-0.4); Hematocrit 38.4 % (42.0-52.0); Hemoglobin 12.9 g/dl (14.0-18.0); Imm Gran Abs Auto 0.01 X10*3/uL (0.00-0.03); Imm Gran Pct Auto 0.2 % (0.0-0.4); Mean Corpuscular HGB Conc 33.6 g/dl (31.0-36.0); Mean Corpuscular Volume 83.3 fL (80.0-98.0); Mean Platelet Volume 10.4 fL (9.4-12.4); Monocytes Absolute Auto 0.5 X10*3/uL (0.1-1.2); Monocytes Percent Auto 9.9 % (2-11); Neutrophils Absolute Auto 2.1 x10*3/uL (2.0-8.3); Neutrophils Percent Auto 44.3 % (45-73); Platelet Count 212 X10*3/uL (160-400); Red Blood Count 4.61 X10*6/uL (4.60-5.80); Red Cell Distribution Width 13.4 % (11.0-16.0); White Blood Count 4.7 X10*3/uL (4.8-10.8)
[2023-02-06] MEDS: Moxifloxacin HCl 0.5 % Oph Sol 3 ML DRPBTL 1 DROP EYE-BOTH ×2 (08:45→15:28)
[2023-02-06] MEDS: busPIRone HCl 10 MG TABLET PO ×3 (09:26→20:17)
--- NOTE | 2023-02-06 11:53 | HO.PSYCHPN ---
Subjective Subjective Date of Service: 02/06/23 Reason For Visit: Psychosis Subjective Notes: Conditional Voluntary Healthcare Proxy: No Guardianship: No Interim History: Patient feeling better less intrusive for auditory hallucinations more engaged in conversation . Looking to return to work no SI no aggressive behavior but remains quiye convinced he is being stalked by a neighbor that there is no illness denies active si Less intense aud hallucinations Medication Compliance: Yes Mental Status Exam Mental Status Exam Patient Appearance: Well Grooomed Patient Orientation: Person and Place Level of Consciousness: Awake Patient Behavior: Appropriate Mood Description: Calm and Apprehensive Affect Description: Constricted Memory Description: Intact Hallucinations: Auditory Diagnostics Vital Signs (24Hr): Vital Signs - 24 hr 02/05/23 18:00 02/06/23 06:00 Temperature 97 F 98.3 F Pulse Rate 89 110 H Respiratory Rate 15 14 Blood Pressure 99/68 116/65 Pulse Oximetry 97 Oxygen Delivery Method Room Air BMI result Body Mass Index 21.1 Labs 02/06/23 08:17 02/01/23 06:37 Labs: Laboratory Results - last 48 hr 02/04/23 02/04/23 02/04/23 12:11 17:20 20:50 WBC RBC Hgb Hct MCV MCH MCHC RDW Plt Count MPV Immature Gran % (Auto) Neut % (Auto) Lymph % (Auto) [place] % (Auto) Eos % (Auto) Baso % (Auto) Lymph # (Auto) [place] # (Auto) Eos # (Auto) Baso # (Auto) Abs Immat Gran (auto) Absolute Neuts (auto) Absolute Nucleated RBC Nucleated RBC % (auto) POC Glucose 143 H 184 H 227 H 02/05/23 02/05/23 02/05/23 08:25 12:56 15:48 WBC RBC Hgb Hct MCV MCH MCHC RDW Plt Count MPV Immature Gran % (Auto) Neut % (Auto) Lymph % (Auto) [place] % (Auto) Eos % (Auto) Baso % (Auto) Lymph # (Auto) [place] # (Auto) Eos # (Auto) Baso # (Auto) Abs Immat Gran (auto) Absolute Neuts (auto) Absolute Nucleated RBC Nucleated RBC % (auto) POC Glucose 220 H 155 H 225 H 02/05/23 02/06/23 02/06/23 20:23 08:11 08:17 WBC 4.7 L RBC 4.61 Hgb 12.9 L Hct 38.4 L MCV 83.3 MCH 28.0 MCHC 33.6 RDW 13.4 Plt Count 212 MPV 10.4 Immature Gran % (Auto) 0.2 Neut % (Auto) 44.3 L Lymph % (Auto) 42.0 H [place] % (Auto) 9.9 Eos % (Auto) 3.0 Baso % (Auto) 0.6 Lymph # (Auto) 2.0 [place] # (Auto) 0.5 Eos # (Auto) 0.1 Baso # (Auto) 0.0 Abs Immat Gran (auto) 0.01 Absolute Neuts (auto) 2.1 Absolute Nucleated RBC 0.000 Nucleated RBC % (auto) 0.0 POC Glucose 163 H 176 H Medications Medications Current Medications Acetaminophen (Acetaminophen 325 Mg Tablet) 650 mg PO Q6H PRN PRN Reason: Headache/Pain Mild Scale (1-3) Last Admin: 02/05/23 14:44 Dose: 650 mg Al Hydroxide/Mg Hydroxide (Magnesium Hydrox/Alum Hydrox 30 Ml Oral.Susp) 30 ml PO Q6H PRN PRN Reason: Heartburn/Nausea Buspirone HCl (Buspirone Hcl 10 Mg Tablet) 10 mg PO TID [facility] Last Admin: 02/06/23 09:26 Dose: 10 mg Clonidine HCl (Clonidine Hcl 0.1 Mg Tablet) 0.1 mg PO BID PRN; Protocol PRN Reason: anxiety Last Admin: 02/03/23 20:35 Dose: 0.1 mg Diphenhydramine HCl (Diphenhydramine Hcl 25 Mg Capsule) 50 mg PO Q6H PRN PRN Reason: EPS/Dystonia Glipizide (Glipizide 5 Mg Tablet) 5 mg PO DAILY [facility] Last Admin: 02/06/23 08:22 Dose: 5 mg Haloperidol (Haloperidol 5 Mg Tablet) 10 mg PO BID [facility] Last Admin: 02/06/23 08:22 Dose: 10 mg Hydroxyzine HCl (Hydroxyzine Hcl 50 Mg Tablet) 50 mg PO Q6H PRN PRN Reason: Anxiety Last Admin: 02/05/23 16:17 Dose: 50 mg Ibuprofen (Ibuprofen 600 Mg Tablet) 600 mg PO Q8H PRN PRN Reason: Pain, Mild (Pain Scale 1-3) Last Admin: 02/05/23 14:45 Dose: 600 mg Insulin Human Lispro (Insulin Lispro 100 Unit/Ml 3 Ml Vial) 0 unit SUBCUT QIDACHS [facility]; Protocol Last Admin: 02/06/23 08:25 Dose: Not Given Magnesium Hydroxide (Milk Of Magnesia 30 Ml Oral.Susp) 30 ml PO DAILY PRN PRN Reason: Constipation Melatonin (Melatonin 3 Mg Tablet) 6 mg PO BEDTIME PRN PRN Reason: insomnia Last Admin: 02/04/23 21:01 Dose: 6 mg Metformin HCl (Metformin Hcl 1,000 Mg Tablet) 1,000 mg PO BIDWM [facility] Last Admin: 02/06/23 08:22 Dose: 1,000 mg Metoprolol Tartrate (Metoprolol Tartrate 12.5 Mg Halftab) 12.5 mg PO BID [facility]; Protocol Last Admin: 02/06/23 08:22 Dose: 12.5 mg Mirtazapine (Mirtazapine 7.5 Mg Tablet) 7.5 mg PO BEDTIME [facility] Last Admin: 02/05/23 19:58 Dose: 7.5 mg Moxifloxacin HCl (Moxifloxacin Hcl 0.5 % Oph Stephania 3 Ml Drpbtl) 1 drop EYE-BOTH TID [facility] Stop: 02/09/23 02:58 Last Admin: 02/06/23 08:45 Dose: 1 drop Nicotine Polacrilex (Nicotine Polacrilex 2 Mg Gum) 4 mg BUCCAL Q2H PRN PRN Reason: Nicotine Cravings Last Admin: 02/04/23 15:25 Dose: 4 mg Trazodone HCl (Trazodone Hcl 50 Mg Tablet) 50 mg PO BEDTIME MRX1 PRN PRN Reason: Insomnia Allergies Allergies Allergy/AdvReac Type Severity Reaction Status Date / Time Pet Dander Allergy Unknown Uncoded 01/31/23 16:26 Assessment & Plan Assessment & Plan (1) Psychosis: Status: Acute Code(s): F29 - Unspecified psychosis not due to a substance or known physiological condition Plan Patient is a 32-year-old man with history of psychosis, paranoid ideations, possible schizophrenia with recent medication noncompliance because of not having any establish connections to any mental health centers even though he was referred to see a so upon his discharge from [facility].? He has been experiencing anxiety and paranoia recently, leading to his coming to the emergency room.?His medications were resumed with the exception of Geodon. Hospital course: 02/02 patient with psychotic symptoms, paranoid delusions and AH; asking for medications to get rid of AH; patient was already started on Zyprexa so will maximize this medication and see if it is effective; otherwise will switch medications to something that can also be used as a long-acting injectable. Will leave Thorazine as a p.r.n. for now 02/03 patient says maybe AH is a little better but they remain in the quite problematic. Still delusional. He agrees to continue with Zyprexa for another day. 02/04 continued AH and delusional thinking; dc zyprexa and start Haldol 02/05 pt reports AH remains; he thinks maybe AH are a little less though they are still very bothersome. Paranoid delusions remain; he does however think haldol is more helpful than zyprexa and says his anxiety is much lower. Of note, pt is now in the mil[place], more social more talkative, eyes open. He asks for Haldol to be increased beyond 15mg totally daily dose wanting to know antony if this med will be effective. Othewisek pt would like to try Clozapine.?-ordered CBC. Pt agreed to remain on unit for further stabilization, possible med titration and to ensure aftercare established, 02/06/23 Pt retracted 3 day dec mateo deng out of bed more he is responding to haldol 10 bid but marked lackinsight deniesacive si cont haldol Plan: 3 day; retracted but placed another one Q 15 minute checks DCZyprexa Increase to Haldol 10 mg BID (pt did not want to triffle w/ longer titration) Continue mirtazapine 7.5 mg q.h.s. Continue BuSpar Continue insulin sliding scale Continue glipizide Continue metformin Obtain outpatient prescriber and therapist. Reason for continued inpatient stay Substantial Risk for: inability to function and rapid decompensation Time Spent With Patient Time: Total time managing care of this patient today ____ minutes.
[2023-02-06 11:56] LABS: Glucose, Whole Blood 233 mg/dL (60-115)
[2023-02-06 16:33] LABS: Glucose, Whole Blood 249 mg/dL (60-115)
[2023-02-06] MEDS: Insulin Lispro 100 UNIT/ML 3 ML VIAL SUBCUT ×2 (17:39→20:16)
[2023-02-06] MEDS: Nicotine Polacrilex 2 MG GUM 4 MG BUCCAL ×2 (17:44→20:38)
[2023-02-06 19:57] LABS: Glucose, Whole Blood 228 mg/dL (60-115)
[2023-02-06] MEDS: Melatonin 3 MG TABLET 6 MG PO (20:33)
[2023-02-06] MEDS: traZODone HCL 50 MG TABLET PO (20:33)
[2023-02-07 06:00] VITALS: BP 91/50; PULSE 78; RESP 16; TEMP 36.9; O2SAT 98
[2023-02-07 08:24] LABS: Glucose, Whole Blood 188 mg/dL (60-115)
[2023-02-07] MEDS: HaloperidoL 5 MG TABLET 10 MG PO ×2 (08:40→18:41)
[2023-02-07] MEDS: Metoprolol Tartrate 12.5 MG HALFTAB PO ×2 (08:40→18:41)
[2023-02-07] MEDS: glipiZIDE 5 MG TABLET PO (08:40)
[2023-02-07] MEDS: metFORMIN HCl 1,000 MG TABLET 1000 MG PO ×2 (08:40→17:44)
[2023-02-07] MEDS: busPIRone HCl 10 MG TABLET PO ×3 (08:40→18:41)
[2023-02-07] MEDS: Insulin Lispro 100 UNIT/ML 3 ML VIAL SUBCUT ×2 (08:42→13:00)
[2023-02-07] MEDS: Nicotine Polacrilex 2 MG GUM 4 MG BUCCAL ×2 (13:07→19:45)
[2023-02-07 13:14] LABS: Glucose, Whole Blood 278 mg/dL (60-115)
[2023-02-07 16:29] LABS: Glucose, Whole Blood 239 mg/dL (60-115)
[2023-02-07 17:49] VITALS: BP 112/55; PULSE 95; TEMP 36.4
[2023-02-07] MEDS: Mirtazapine 7.5 MG TABLET PO (18:41)
[2023-02-07] MEDS: traZODone HCL 50 MG TABLET PO (18:41)
[2023-02-07] MEDS: Melatonin 3 MG TABLET 6 MG PO (18:45)
[2023-02-07 18:47] VITALS: BP 117/66; PULSE 104
--- NOTE | 2023-02-07 21:15 | HO.PSYCHPN ---
Subjective Subjective Date of Service: 02/07/23 Reason For Visit: Psychosis Interim History: Patient seen and discussed with RN. Patient has been improving. Says the medications are helpful for his AH. He denies SI. The medications are helping with my anxiety and voices. He says he feels groggy and tired. No other side effects. PI continue. Review of Systems Review of Systems Patient has no acute medical complaints at this time Yes all other systems are reviewed and are negative Mental Status Exam Mental Status Exam Narrative: Pt is alert and oriented; behavior is cooperative, polite, calm; patient is not in distress; dressed in casual attire, unkempt hair, still disheveled; mood is described as ok and affect congruent, more naturally expressive; eye contact appropriate (no longer closed); Speech is normal rate, volume; normal prosody and not pressured; some psychomotor retardation present; thought process is goal directed; Thought content is on tx; and paranoia regarding being stalked by his neighbor; denies any SI/HI/VH. Auditory hallucinations present. Patients insight and judgment impaired but improved. Patient Appearance: Well Grooomed Patient Orientation: Person and Place Level of Consciousness: Awake and Drowsy Patient Behavior: Appropriate Mood Description: Calm and Apprehensive Affect Description: Constricted Patient Cognition Impaired: No Ability to Follow Directions: Good Speech Pattern: Clear and Appropriate Memory Description: Intact Diagnostics Vital Signs (24Hr): Vital Signs - 24 hr 02/07/23 06:00 02/07/23 17:49 02/07/23 18:47 Temperature 98.5 F 97.5 F Pulse Rate 78 95 104 H Respiratory Rate 16 Blood Pressure 91/50 L 112/55 L 117/66 Pulse Oximetry 98 Oxygen Delivery Method Room Air BMI result Body Mass Index 21.1 Labs 02/06/23 08:17 02/01/23 06:37 Labs: Laboratory Results - last 48 hr 02/06/23 02/06/23 02/06/23 08:11 08:17 11:52 WBC 4.7 L RBC 4.61 Hgb 12.9 L Hct 38.4 L MCV 83.3 MCH 28.0 MCHC 33.6 RDW 13.4 Plt Count 212 MPV 10.4 Immature Gran % (Auto) 0.2 Neut % (Auto) 44.3 L Lymph % (Auto) 42.0 H [place] % (Auto) 9.9 Eos % (Auto) 3.0 Baso % (Auto) 0.6 Lymph # (Auto) 2.0 [place] # (Auto) 0.5 Eos # (Auto) 0.1 Baso # (Auto) 0.0 Abs Immat Gran (auto) 0.01 Absolute Neuts (auto) 2.1 Absolute Nucleated RBC 0.000 Nucleated RBC % (auto) 0.0 POC Glucose 176 H 233 H 02/06/23 02/06/23 02/07/23 16:30 19:54 08:20 WBC RBC Hgb Hct MCV MCH MCHC RDW Plt Count MPV Immature Gran % (Auto) Neut % (Auto) Lymph % (Auto) [place] % (Auto) Eos % (Auto) Baso % (Auto) Lymph # (Auto) [place] # (Auto) Eos # (Auto) Baso # (Auto) Abs Immat Gran (auto) Absolute Neuts (auto) Absolute Nucleated RBC Nucleated RBC % (auto) POC Glucose 249 H 228 H 188 H 02/07/23 02/07/23 13:10 16:25 WBC RBC Hgb Hct MCV MCH MCHC RDW Plt Count MPV Immature Gran % (Auto) Neut % (Auto) Lymph % (Auto) [place] % (Auto) Eos % (Auto) Baso % (Auto) Lymph # (Auto) [place] # (Auto) Eos # (Auto) Baso # (Auto) Abs Immat Gran (auto) Absolute Neuts (auto) Absolute Nucleated RBC Nucleated RBC % (auto) POC Glucose 278 H 239 H Medications Medications Current Medications Acetaminophen (Acetaminophen 325 Mg Tablet) 650 mg PO Q6H PRN PRN Reason: Headache/Pain Mild Scale (1-3) Last Admin: 02/05/23 14:44 Dose: 650 mg Al Hydroxide/Mg Hydroxide (Magnesium Hydrox/Alum Hydrox 30 Ml Oral.Susp) 30 ml PO Q6H PRN PRN Reason: Heartburn/Nausea Buspirone HCl (Buspirone Hcl 10 Mg Tablet) 10 mg PO TID [facility] Last Admin: 02/07/23 18:41 Dose: 10 mg Clonidine HCl (Clonidine Hcl 0.1 Mg Tablet) 0.1 mg PO BID PRN; Protocol PRN Reason: anxiety Last Admin: 02/03/23 20:35 Dose: 0.1 mg Diphenhydramine HCl (Diphenhydramine Hcl 25 Mg Capsule) 50 mg PO Q6H PRN PRN Reason: EPS/Dystonia Glipizide (Glipizide 5 Mg Tablet) 5 mg PO DAILY [facility] Last Admin: 02/07/23 08:40 Dose: 5 mg Haloperidol (Haloperidol 5 Mg Tablet) 10 mg PO BID [facility] Last Admin: 02/07/23 18:41 Dose: 10 mg Hydroxyzine HCl (Hydroxyzine Hcl 50 Mg Tablet) 50 mg PO Q6H PRN PRN Reason: Anxiety Last Admin: 02/05/23 16:17 Dose: 50 mg Ibuprofen (Ibuprofen 600 Mg Tablet) 600 mg PO Q8H PRN PRN Reason: Pain, Mild (Pain Scale 1-3) Last Admin: 02/05/23 14:45 Dose: 600 mg Insulin Human Lispro (Insulin Lispro 100 Unit/Ml 3 Ml Vial) 0 unit SUBCUT QIDACHS [facility]; Protocol Last Admin: 02/07/23 18:46 Dose: Not Given Magnesium Hydroxide (Milk Of Magnesia 30 Ml Oral.Susp) 30 ml PO DAILY PRN PRN Reason: Constipation Melatonin (Melatonin 3 Mg Tablet) 6 mg PO BEDTIME PRN PRN Reason: insomnia Last Admin: 02/07/23 18:45 Dose: 6 mg Metformin HCl (Metformin Hcl 1,000 Mg Tablet) 1,000 mg PO BIDWM [facility] Last Admin: 02/07/23 17:44 Dose: 1,000 mg Metoprolol Tartrate (Metoprolol Tartrate 12.5 Mg Halftab) 12.5 mg PO BID [facility]; Protocol Last Admin: 02/07/23 18:41 Dose: 12.5 mg Mirtazapine (Mirtazapine 7.5 Mg Tablet) 7.5 mg PO BEDTIME [facility] Last Admin: 02/07/23 18:41 Dose: 7.5 mg Moxifloxacin HCl (Moxifloxacin Hcl 0.5 % Oph Stephania 3 Ml Drpbtl) 1 drop EYE-BOTH TID [facility] Stop: 02/09/23 02:58 Last Admin: 02/07/23 18:47 Dose: Not Given Nicotine Polacrilex (Nicotine Polacrilex 2 Mg Gum) 4 mg BUCCAL Q2H PRN PRN Reason: Nicotine Cravings Last Admin: 02/07/23 19:45 Dose: 4 mg Trazodone HCl (Trazodone Hcl 50 Mg Tablet) 50 mg PO BEDTIME MRX1 PRN PRN Reason: Insomnia Last Admin: 02/07/23 18:41 Dose: 50 mg Allergies Allergies Allergy/AdvReac Type Severity Reaction Status Date / Time Pet Dander Allergy Unknown Uncoded 01/31/23 16:26 Assessment & Plan Assessment & Plan (1) Psychosis: Status: Acute Code(s): F29 - Unspecified psychosis not due to a substance or known physiological condition Plan Patient is a 32-year-old man with history of psychosis, paranoid ideations, possible schizophrenia with recent medication noncompliance because of not having any establish connections to any mental health centers even though he was referred to see a so upon his discharge from [facility].? He has been experiencing anxiety and paranoia recently, leading to his coming to the emergency room.?His medications were resumed with the exception of Geodon. Hospital course: 02/02 patient with psychotic symptoms, paranoid delusions and AH; asking for medications to get rid of AH; patient was already started on Zyprexa so will maximize this medication and see if it is effective; otherwise will switch medications to something that can also be used as a long-acting injectable. Will leave Thorazine as a p.r.n. for now 02/03 patient says maybe AH is a little better but they remain in the quite problematic. Still delusional. He agrees to continue with Zyprexa for another day. 02/04 continued AH and delusional thinking; dc zyprexa and start Haldol 02/05 pt reports AH remains; he thinks maybe AH are a little less though they are still very bothersome. Paranoid delusions remain; he does however think haldol is more helpful than zyprexa and says his anxiety is much lower. Of note, pt is now in the milue, more social more talkative, eyes open. He asks for Haldol to be increased beyond 15mg totally daily dose wanting to know antony if this med will be effective. Othewisek pt would like to try Clozapine.?-ordered CBC. Pt agreed to remain on unit for further stabilization, possible med titration and to ensure aftercare established, 02/06/23 Pt retracted 3 day dec aud deng out of bed more he is responding to haldol 10 bid but marked lackinsight deniesacive si cont haldol 02/07: Continue current tx plan. Plan: 3 day; retracted but placed another one Q 15 minute checks DCZyprexa Increase to Haldol 10 mg BID (pt did not want to triffle w/ longer titration) Continue mirtazapine 7.5 mg q.h.s. Continue BuSpar Continue insulin sliding scale Continue glipizide Continue metformin Obtain outpatient prescriber and therapist. Reason for continued inpatient stay Substantial Risk for: inability to function and rapid decompensation Time Spent With Patient Time: Total time managing care of this patient today ____ minutes.
[2023-02-08 08:05] LABS: Glucose, Whole Blood 182 mg/dL (60-115)
[2023-02-08 08:08] VITALS: BP 111/58; PULSE 78; RESP 18; TEMP 36.6; O2SAT 97
[2023-02-08] MEDS: busPIRone HCl 10 MG TABLET PO ×3 (08:55→19:01)
[2023-02-08] MEDS: metFORMIN HCl 1,000 MG TABLET 1000 MG PO ×2 (08:55→16:44)
[2023-02-08] MEDS: HaloperidoL 5 MG TABLET 10 MG PO ×2 (08:55→19:01)
[2023-02-08] MEDS: glipiZIDE 5 MG TABLET PO (08:56)
[2023-02-08] MEDS: Insulin Lispro 100 UNIT/ML 3 ML VIAL SUBCUT (08:57)
[2023-02-08] MEDS: Metoprolol Tartrate 12.5 MG HALFTAB PO ×2 (08:59→19:01)
--- NOTE | 2023-02-08 09:16 | HO.PSYCHPN ---
Subjective Subjective Date of Service: 02/08/23 Reason For Visit: Psychosis Interim History: Patient seen and discussed with RN. Patient has been improving. Says the medications are helpful for his AH. He denies SI. Says he would like to leave tomorrow. He has time sheets he has to fill out for work. The medications are helping anxiety and hallucinations. Tiredness is a side effect. Less paranoia. Review of Systems Review of Systems Patient has no acute medical complaints at this time Yes all other systems are reviewed and are negative Mental Status Exam Mental Status Exam Narrative: Pt is alert and oriented; behavior is cooperative, polite, calm; patient is not in distress; dressed in casual attire, unkempt hair, still disheveled; mood is described as ok and affect congruent, more naturally expressive; eye contact appropriate (no longer closed); Speech is normal rate, volume; normal prosody and not pressured; some psychomotor retardation present; thought process is goal directed; Thought content is on tx; and paranoia regarding being stalked by his neighbor; denies any SI/HI/VH. Auditory hallucinations present. Patients insight and judgment impaired but improved. Patient Appearance: Well Grooomed Patient Orientation: Person and Place Level of Consciousness: Awake and Drowsy Patient Behavior: Appropriate Mood Description: Calm and Apprehensive Affect Description: Constricted Patient Cognition Impaired: No Ability to Follow Directions: Good Speech Pattern: Clear and Appropriate Memory Description: Intact Diagnostics Vital Signs (24Hr): Vital Signs - 24 hr 02/07/23 17:49 02/07/23 18:47 02/08/23 08:08 Temperature 97.5 F 97.8 F Pulse Rate 95 104 H 78 Respiratory Rate 18 Blood Pressure 112/55 L 117/66 111/58 L Pulse Oximetry 97 Oxygen Delivery Method Room Air BMI result Body Mass Index 21.1 Labs 02/06/23 08:17 02/01/23 06:37 Labs: Laboratory Results - last 48 hr 02/06/23 02/06/23 02/06/23 11:52 16:30 19:54 POC Glucose 233 H 249 H 228 H 02/07/23 02/07/23 02/07/23 08:20 13:10 16:25 POC Glucose 188 H 278 H 239 H 02/08/23 08:00 POC Glucose 182 H Medications Medications Current Medications Acetaminophen (Acetaminophen 325 Mg Tablet) 650 mg PO Q6H PRN PRN Reason: Headache/Pain Mild Scale (1-3) Last Admin: 02/05/23 14:44 Dose: 650 mg Al Hydroxide/Mg Hydroxide (Magnesium Hydrox/Alum Hydrox 30 Ml Oral.Susp) 30 ml PO Q6H PRN PRN Reason: Heartburn/Nausea Buspirone HCl (Buspirone Hcl 10 Mg Tablet) 10 mg PO TID [facility] Last Admin: 02/08/23 08:55 Dose: 10 mg Clonidine HCl (Clonidine Hcl 0.1 Mg Tablet) 0.1 mg PO BID PRN; Protocol PRN Reason: anxiety Last Admin: 02/03/23 20:35 Dose: 0.1 mg Diphenhydramine HCl (Diphenhydramine Hcl 25 Mg Capsule) 50 mg PO Q6H PRN PRN Reason: EPS/Dystonia Glipizide (Glipizide 5 Mg Tablet) 5 mg PO DAILY [facility] Last Admin: 02/08/23 08:56 Dose: 5 mg Haloperidol (Haloperidol 5 Mg Tablet) 10 mg PO BID [facility] Last Admin: 02/08/23 08:55 Dose: 10 mg Hydroxyzine HCl (Hydroxyzine Hcl 50 Mg Tablet) 50 mg PO Q6H PRN PRN Reason: Anxiety Last Admin: 02/05/23 16:17 Dose: 50 mg Ibuprofen (Ibuprofen 600 Mg Tablet) 600 mg PO Q8H PRN PRN Reason: Pain, Mild (Pain Scale 1-3) Last Admin: 02/05/23 14:45 Dose: 600 mg Insulin Human Lispro (Insulin Lispro 100 Unit/Ml 3 Ml Vial) 0 unit SUBCUT QIDACHS [facility]; Protocol Last Admin: 02/08/23 08:57 Dose: 2 unit Magnesium Hydroxide (Milk Of Magnesia 30 Ml Oral.Susp) 30 ml PO DAILY PRN PRN Reason: Constipation Melatonin (Melatonin 3 Mg Tablet) 6 mg PO BEDTIME PRN PRN Reason: insomnia Last Admin: 02/07/23 18:45 Dose: 6 mg Metformin HCl (Metformin Hcl 1,000 Mg Tablet) 1,000 mg PO BIDWM [facility] Last Admin: 02/08/23 08:55 Dose: 1,000 mg Metoprolol Tartrate (Metoprolol Tartrate 12.5 Mg Halftab) 12.5 mg PO BID [facility]; Protocol Last Admin: 02/08/23 08:59 Dose: 12.5 mg Mirtazapine (Mirtazapine 7.5 Mg Tablet) 7.5 mg PO BEDTIME [facility] Last Admin: 02/07/23 18:41 Dose: 7.5 mg Moxifloxacin HCl (Moxifloxacin Hcl 0.5 % Oph Stephania 3 Ml Drpbtl) 1 drop EYE-BOTH TID [facility] Stop: 02/09/23 02:58 Last Admin: 02/08/23 09:14 Dose: Not Given Nicotine Polacrilex (Nicotine Polacrilex 2 Mg Gum) 4 mg BUCCAL Q2H PRN PRN Reason: Nicotine Cravings Last Admin: 02/07/23 19:45 Dose: 4 mg Trazodone HCl (Trazodone Hcl 50 Mg Tablet) 50 mg PO BEDTIME MRX1 PRN PRN Reason: Insomnia Last Admin: 02/07/23 18:41 Dose: 50 mg Allergies Allergies Allergy/AdvReac Type Severity Reaction Status Date / Time Pet Dander Allergy Unknown Uncoded 01/31/23 16:26 Assessment & Plan Assessment & Plan (1) Psychosis: Status: Acute Code(s): F29 - Unspecified psychosis not due to a substance or known physiological condition Plan Patient is a 32-year-old man with history of psychosis, paranoid ideations, possible schizophrenia with recent medication noncompliance because of not having any establish connections to any mental health centers even though he was referred to see a so upon his discharge from [facility].? He has been experiencing anxiety and paranoia recently, leading to his coming to the emergency room.?His medications were resumed with the exception of Geodon. Hospital course: 02/02 patient with psychotic symptoms, paranoid delusions and AH; asking for medications to get rid of AH; patient was already started on Zyprexa so will maximize this medication and see if it is effective; otherwise will switch medications to something that can also be used as a long-acting injectable. Will leave Thorazine as a p.r.n. for now 02/03 patient says maybe AH is a little better but they remain in the quite problematic. Still delusional. He agrees to continue with Zyprexa for another day. 02/04 continued AH and delusional thinking; dc zyprexa and start Haldol 02/05 pt reports AH remains; he thinks maybe AH are a little less though they are still very bothersome. Paranoid delusions remain; he does however think haldol is more helpful than zyprexa and says his anxiety is much lower. Of note, pt is now in the milue, more social more talkative, eyes open. He asks for Haldol to be increased beyond 15mg totally daily dose wanting to know antony if this med will be effective. Othewisek pt would like to try Clozapine.?-ordered CBC. Pt agreed to remain on unit for further stabilization, possible med titration and to ensure aftercare established, 02/06/23 Pt retracted 3 day dec mateo deng out of bed more he is responding to haldol 10 bid but marked lackinsight deniesacive si cont haldol 02/07: Continue current tx plan. 02/08: Continue current plan. Plan: 3 day; retracted but placed another one Q 15 minute checks DCZyprexa Increase to Haldol 10 mg BID (pt did not want to triffle w/ longer titration) Continue mirtazapine 7.5 mg q.h.s. Continue BuSpar Continue insulin sliding scale Continue glipizide Continue metformin Obtain outpatient prescriber and therapist. Reason for continued inpatient stay Substantial Risk for: harm to self, inability to function and rapid decompensation Time Spent With Patient Time: Total time managing care of this patient today ____ minutes.
[2023-02-08 12:44] LABS: Glucose, Whole Blood 97 mg/dL (60-115)
[2023-02-08] MEDS: hydrOXYzine HCL 50 MG TABLET PO (14:18)
[2023-02-08] MEDS: Mirtazapine 7.5 MG TABLET PO (19:00)
[2023-02-08] MEDS: traZODone HCL 50 MG TABLET PO (19:00)
[2023-02-08] MEDS: Melatonin 3 MG TABLET 6 MG PO (19:01)
[2023-02-08 19:22] VITALS: BP 125/75; PULSE 80
[2023-02-09 08:15] VITALS: BP 119/68; PULSE 78; RESP 16; TEMP 36.6; O2SAT 98
[2023-02-09] MEDS: Metoprolol Tartrate 12.5 MG HALFTAB PO ×2 (08:16→19:26)
[2023-02-09] MEDS: HaloperidoL 5 MG TABLET 10 MG PO ×2 (08:17→19:25)
[2023-02-09] MEDS: metFORMIN HCl 1,000 MG TABLET 1000 MG PO ×2 (08:17→16:45)
[2023-02-09] MEDS: glipiZIDE 5 MG TABLET PO (08:17)
[2023-02-09] MEDS: busPIRone HCl 10 MG TABLET PO ×3 (08:17→19:25)
[2023-02-09 10:04] LABS: Anion Gap 15 (12-20); Blood Urea Nitrogen 12 mg/dL (9-16); Calcium 9.6 mg/dL (8.4-10.2); Carbon Dioxide 25 mmol/L (22-29); Chloride 101 mmol/L (96-108); Creatinine Clr Calc Pharmacy 98.3; Estimated Glomerular Filt Rate > 60; Potassium 4.5 mmol/L (3.3-5.1); Sodium 136 mmol/L (135-145)
[2023-02-09 12:07] LABS: Glucose, Whole Blood 302 mg/dL (60-115)
[2023-02-09] MEDS: Insulin Lispro 100 UNIT/ML 3 ML VIAL SUBCUT (12:08)
[2023-02-09 13:12] LABS: Glucose Random 191 mg/dL (60-115)
--- NOTE | 2023-02-09 13:50 | HO.PSYCHPN ---
Subjective Subjective Date of Service: 02/09/23 Reason For Visit: Psychosis Interim History: With patient; discussed with team Patient reports he is doing much better. He says auditory hallucinations are almost completely gone which was his main goal. He also says his anxiety is way down way down. Patient is looking forward to discharge. He is sleeping well through the night, eating well and feels ready to go home where he lives with his mother. Patient agrees that Haldol has made the significant difference and will continue taking it. Discussed long-acting injectable however patient would like to remain on p.o. medication. Discussed substance abuse and patient does not feel it is an issue. Mental Status Exam Mental Status Exam Narrative: Pt is alert and oriented; behavior is cooperative, polite, calm; patient is not in distress; dressed in casual attire, adequate hygiene; mood is described as good and affect congruent, bright, naturally expressive; eye contact appropriate; Speech is normal rate, volume; normal prosody and not pressured; no psychomotor retardation present; thought process is goal directed, linear; Thought content is on tx, discharge; some remaining paranoid thinking but minimal and not bothersome; denies any SI/HI/VH. No AH Patients insight and judgment impaired but improved and adequate. Diagnostics Vital Signs (24Hr): Vital Signs - 24 hr 02/08/23 19:22 02/09/23 08:15 Temperature 97.8 F Pulse Rate 80 78 Respiratory Rate 16 Blood Pressure 125/75 119/68 Pulse Oximetry 98 Oxygen Delivery Method Room Air BMI result Body Mass Index 21.1 Labs 02/06/23 08:17 02/09/23 08:14 Labs: Laboratory Results - last 48 hr 02/07/23 02/08/23 02/08/23 16:25 08:00 12:40 Sodium Potassium Chloride Carbon Dioxide Anion Gap BUN Creatinine Estim Creat Clear Calc Estimated GFR POC Glucose 239 H 182 H 97 Random Glucose Calcium 02/09/23 02/09/23 02/09/23 08:14 08:14 12:03 Sodium 136 Potassium 4.5 Chloride 101 Carbon Dioxide 25 Anion Gap 15 BUN 12 Creatinine Cancelled 0.97 Estim Creat Clear Calc Cancelled 98.3 Estimated GFR Cancelled > 60 POC Glucose 302 H Random Glucose 191 H Calcium 9.6 Medications Medications Current Medications Acetaminophen (Acetaminophen 325 Mg Tablet) 650 mg PO Q6H PRN PRN Reason: Headache/Pain Mild Scale (1-3) Last Admin: 02/05/23 14:44 Dose: 650 mg Al Hydroxide/Mg Hydroxide (Magnesium Hydrox/Alum Hydrox 30 Ml Oral.Susp) 30 ml PO Q6H PRN PRN Reason: Heartburn/Nausea Buspirone HCl (Buspirone Hcl 10 Mg Tablet) 10 mg PO TID [facility] Last Admin: 02/09/23 08:17 Dose: 10 mg Clonidine HCl (Clonidine Hcl 0.1 Mg Tablet) 0.1 mg PO BID PRN; Protocol PRN Reason: anxiety Last Admin: 02/03/23 20:35 Dose: 0.1 mg Diphenhydramine HCl (Diphenhydramine Hcl 25 Mg Capsule) 50 mg PO Q6H PRN PRN Reason: EPS/Dystonia Glipizide (Glipizide 5 Mg Tablet) 5 mg PO DAILY [facility] Last Admin: 02/09/23 08:17 Dose: 5 mg Haloperidol (Haloperidol 5 Mg Tablet) 10 mg PO BID [facility] Last Admin: 02/09/23 08:17 Dose: 10 mg Hydroxyzine HCl (Hydroxyzine Hcl 50 Mg Tablet) 50 mg PO Q6H PRN PRN Reason: Anxiety Last Admin: 02/08/23 14:18 Dose: 50 mg Ibuprofen (Ibuprofen 600 Mg Tablet) 600 mg PO Q8H PRN PRN Reason: Pain, Mild (Pain Scale 1-3) Last Admin: 02/05/23 14:45 Dose: 600 mg Insulin Human Lispro (Insulin Lispro 100 Unit/Ml 3 Ml Vial) 0 unit SUBCUT QIDACHS [facility]; Protocol Last Admin: 02/09/23 12:08 Dose: 8 unit Magnesium Hydroxide (Milk Of Magnesia 30 Ml Oral.Susp) 30 ml PO DAILY PRN PRN Reason: Constipation Melatonin (Melatonin 3 Mg Tablet) 6 mg PO BEDTIME PRN PRN Reason: insomnia Last Admin: 02/08/23 19:01 Dose: 6 mg Metformin HCl (Metformin Hcl 1,000 Mg Tablet) [facility] [place] [facility] [place] Admin: 02/09/23 08:17 Dose: 1,000 mg Metoprolol Tartrate (Metoprolol Tartrate 12.5 Mg Halftab) 12.5 mg PO BID [facility]; Protocol Last Admin: 02/09/23 08:16 Dose: 12.5 mg Mirtazapine (Mirtazapine 7.5 Mg Tablet) 7.5 mg PO BEDTIME [facility] Last Admin: 02/08/23 19:00 Dose: 7.5 mg Nicotine Polacrilex (Nicotine Polacrilex 2 Mg Gum) 4 mg BUCCAL Q2H PRN PRN Reason: Nicotine Cravings Last Admin: 02/07/23 19:45 Dose: 4 mg Trazodone HCl (Trazodone Hcl 50 Mg Tablet) 50 mg PO BEDTIME MRX1 PRN PRN Reason: Insomnia Last Admin: 02/08/23 19:00 Dose: 50 mg Allergies Allergies Allergy/AdvReac Type Severity Reaction Status Date / Time Pet Dander Allergy Unknown Uncoded 01/31/23 16:26 Assessment & Plan Assessment & Plan (1) Psychosis: Status: Acute Code(s): F29 - Unspecified psychosis not due to a substance or known physiological condition Plan Patient is a 32-year-old man with history of psychosis, paranoid ideations, possible schizophrenia with recent medication noncompliance because of not having any establish connections to any mental health centers even though he was referred to see a so upon his discharge from [facility].? He has been experiencing anxiety and paranoia recently, leading to his coming to the emergency room.?His medications were resumed with the exception of Geodon. Hospital course: 02/02 patient with psychotic symptoms, paranoid delusions and AH; asking for medications to get rid of AH; patient was already started on Zyprexa so will maximize this medication and see if it is effective; otherwise will switch medications to something that can also be used as a long-acting injectable. Will leave Thorazine as a p.r.n. for now 02/03 patient says maybe AH is a little better but they remain in the quite problematic. Still delusional. He agrees to continue with Zyprexa for another day. 02/04 continued AH and delusional thinking; dc zyprexa and start Haldol 02/05 pt reports AH remains; he thinks maybe AH are a little less though they are still very bothersome. Paranoid delusions remain; he does however think haldol is more helpful than zyprexa and says his anxiety is much lower. Of note, pt is now in the milue, more social more talkative, eyes open. He asks for Haldol to be increased beyond 15mg totally daily dose wanting to know antony if this med will be effective. Othewisek pt would like to try Clozapine.?-ordered CBC. Pt agreed to remain on unit for further stabilization, possible med titration and to ensure aftercare established, 02/06/23 Pt retracted 3 day dec aud deng out of bed more he is responding to haldol 10 bid but marked lackinsight deniesacive si cont haldol 02/07: Continue current tx plan. 02/08: Continue current plan. 02/09 patient stabilized; denies any auditory hallucinations and saying if they do appear they are so minimal he hardly notices them; feels ready for discharge, feel safe, good mood, no SI at all; he feels ready to return home where he lives with his mother. Lacks insight to know that his paranoid delusion are part of his illness however he has insight/judgment to know that it is the medications that have removed auditory hallucinations and that he needs to continue taking them. Patient's 3 day notice is coming due. Patient lives at home with his mother who is supportive at aware of his psychiatric illness. While he remains vulnerable to decompensation, Patient now has outpatient providers established which resolves one of the primary reasons he's been de-compensating and having to repeatedly present for psychiatric admissions. He is not in imminent risk for harm to self or others and his request for discharge honored. Regarding diabetes, patient is poor glucose control has mainly been due to poor adherence with p.o. medication; this time patient does not want nor require to be continued on insulin as consistent adherence with current home medication regimen may prove adequate; he can discuss this further with his outpatient provider -conjunctivitis resolved Plan: 3 day; retracted but placed another one Q 15 minute checks DCZyprexa Increase to Haldol 10 mg BID (pt did not want to triffle w/ longer titration) Continue mirtazapine 7.5 mg q.h.s. Continue BuSpar Continue insulin sliding scale Continue glipizide Continue metformin Obtain outpatient prescriber and therapist. Patient educated on: diagnosis, medication risk/benefits and therapeutic strategies Informed Consent: understands Reason for continued inpatient stay Substantial Risk for: stable for discharge Time Spent With Patient Time: Total time managing care of this patient today ____ minutes.
[2023-02-09] MEDS: hydrOXYzine HCL 50 MG TABLET PO (16:15)
[2023-02-09 16:31] LABS: Glucose, Whole Blood 104 mg/dL (60-115)
--- NOTE | 2023-02-09 16:52 | P.DS_ITS ---
DS: Providers Provider Date of Service: 02/09/23 Date of admission: 01/31/23 15:56 Date of discharge: 02/09/23 Primary care physician: Unknown Physician Attending physician on admission: Adrien Snider Consults: 02/01/23 17:15 Consult to Hospitalist Routine Comment: Consulting Provider: Hospitalist Reason For Exam: admission Attending physician on discharge: Adrine Snider DS: Diagnosis Discharge Diagnosis (1) Psychosis: Status: Acute DS: Medications Discharge Medications Home Medications: Previous Rx's Medication Instructions Recorded buspirone 10 mg tablet 10 mg PO TID 30 days #90 tabs 02/09/23 glipizide 5 mg tablet 5 mg PO DAILY 30 days #30 tabs 02/09/23 haloperidol 10 mg tablet 10 mg PO BID 30 days #60 tabs 02/09/23 hydroxyzine HCl 50 mg tablet 50 mg PO Q6H PRN Anxiety 30 days 02/09/23 #60 tabs melatonin 5 mg tablet 5 mg PO BEDTIME PRN sleep 30 days 02/09/23 #30 tabs metformin 1,000 mg tablet 1,000 mg PO BID 30 days #60 tabs 02/09/23 metoprolol tartrate 25 mg tablet 12.5 mg PO BID 30 days #30 tabs 02/09/23 mirtazapine 7.5 mg tablet 7.5 mg PO BEDTIME 30 days #30 tabs 02/09/23 nicotine (polacrilex) 2 mg gum 4 mg buccal Q2H PRN Nicotine 02/09/23 Cravings 30 days #100 ea trazodone 50 mg tablet 50 mg PO BEDTIME PRN Insomnia 30 02/09/23 days #30 tabs Mental Status Exam Mental Status Exam Narrative: Pt is alert and oriented; behavior is cooperative, polite, calm; patient is not in distress; dressed in casual attire, adequate hygiene; mood is described as good and affect congruent, bright, naturally expressive; eye contact appropriate; Speech is normal rate, volume; normal prosody and not pressured; no psychomotor retardation present; thought process is goal directed, linear; Thought content is on tx, discharge; some remaining paranoid thinking but minimal and not bothersome; denies any SI/HI/VH. No Patients insight and judgment impaired but improved and adequate. Data Data Completed and Pending Completed studies during hospitalization [Text1]: 02/02/23 02/02/23 02/03/23 17:06 21:12 07:49 WBC RBC Hgb Hct MCV MCH MCHC RDW Plt Count MPV Immature Gran % (Auto) Neut % (Auto) Lymph % (Auto) [place] % (Auto) Eos % (Auto) Baso % (Auto) Lymph # (Auto) [place] # (Auto) Eos # (Auto) Baso # (Auto) Abs Immat Gran (auto) Absolute Neuts (auto) Absolute Nucleated RBC Nucleated RBC % (auto) Sodium Potassium Chloride Carbon Dioxide Anion Gap BUN Creatinine Estim Creat Clear Calc Estimated GFR POC Glucose 233 H 158 H 257 H Random Glucose Calcium 02/03/23 02/03/23 02/03/23 12:05 16:59 20:43 WBC RBC Hgb Hct MCV MCH MCHC RDW Plt Count MPV Immature Gran % (Auto) Neut % (Auto) Lymph % (Auto) [place] % (Auto) Eos % (Auto) Baso % (Auto) Lymph # (Auto) [place] # (Auto) Eos # (Auto) Baso # (Auto) Abs Immat Gran (auto) Absolute Neuts (auto) Absolute Nucleated RBC Nucleated RBC % (auto) Sodium Potassium Chloride Carbon Dioxide Anion Gap BUN Creatinine Estim Creat Clear Calc Estimated GFR POC Glucose 183 H 172 H 207 H Random Glucose Calcium 02/04/23 02/04/23 02/04/23 12:11 17:20 20:50 WBC RBC Hgb Hct MCV MCH MCHC RDW Plt Count MPV Immature Gran % (Auto) Neut % (Auto) Lymph % (Auto) [place] % (Auto) Eos % (Auto) Baso % (Auto) Lymph # (Auto) [place] # (Auto) Eos # (Auto) Baso # (Auto) Abs Immat Gran (auto) Absolute Neuts (auto) Absolute Nucleated RBC Nucleated RBC % (auto) Sodium Potassium Chloride Carbon Dioxide Anion Gap BUN Creatinine Estim Creat Clear Calc Estimated GFR POC Glucose 143 H 184 H 227 H Random Glucose Calcium 02/05/23 02/05/23 02/05/23 08:25 12:56 15:48 WBC RBC Hgb Hct MCV MCH MCHC RDW Plt Count MPV Immature Gran % (Auto) Neut % (Auto) Lymph % (Auto) [place] % (Auto) Eos % (Auto) Baso % (Auto) Lymph # (Auto) [place] # (Auto) Eos # (Auto) Baso # (Auto) Abs Immat Gran (auto) Absolute Neuts (auto) Absolute Nucleated RBC Nucleated RBC % (auto) Sodium Potassium Chloride Carbon Dioxide Anion Gap BUN Creatinine Estim Creat Clear Calc Estimated GFR POC Glucose 220 H 155 H 225 H Random Glucose Calcium 02/05/23 02/06/23 02/06/23 20:23 08:11 08:17 WBC 4.7 L RBC 4.61 Hgb 12.9 L Hct 38.4 L MCV 83.3 MCH 28.0 MCHC 33.6 RDW 13.4 Plt Count 212 MPV 10.4 Immature Gran % (Auto) 0.2 Neut % (Auto) 44.3 L Lymph % (Auto) 42.0 H [place] % (Auto) 9.9 Eos % (Auto) 3.0 Baso % (Auto) 0.6 Lymph # (Auto) 2.0 [place] # (Auto) 0.5 Eos # (Auto) 0.1 Baso # (Auto) 0.0 Abs Immat Gran (auto) 0.01 Absolute Neuts (auto) 2.1 Absolute Nucleated RBC 0.000 Nucleated RBC % (auto) 0.0 Sodium Potassium Chloride Carbon Dioxide Anion Gap BUN Creatinine Estim Creat Clear Calc Estimated GFR POC Glucose 163 H 176 H Random Glucose Calcium 02/06/23 02/06/23 02/06/23 11:52 16:30 19:54 WBC RBC Hgb Hct MCV MCH MCHC RDW Plt Count MPV Immature Gran % (Auto) Neut % (Auto) Lymph % (Auto) [place] % (Auto) Eos % (Auto) Baso % (Auto) Lymph # (Auto) [place] # (Auto) Eos # (Auto) Baso # (Auto) Abs Immat Gran (auto) Absolute Neuts (auto) Absolute Nucleated RBC Nucleated RBC % (auto) Sodium Potassium Chloride Carbon Dioxide Anion Gap BUN Creatinine Estim Creat Clear Calc Estimated GFR POC Glucose 233 H 249 H 228 H Random Glucose Calcium 02/07/23 02/07/23 02/07/23 08:20 13:10 16:25 WBC RBC Hgb Hct MCV MCH MCHC RDW Plt Count MPV Immature Gran % (Auto) Neut % (Auto) Lymph % (Auto) [place] % (Auto) Eos % (Auto) Baso % (Auto) Lymph # (Auto) [place] # (Auto) Eos # (Auto) Baso # (Auto) Abs Immat Gran (auto) Absolute Neuts (auto) Absolute Nucleated RBC Nucleated RBC % (auto) Sodium Potassium Chloride Carbon Dioxide Anion Gap BUN Creatinine Estim Creat Clear Calc Estimated GFR POC Glucose 188 H 278 H 239 H Random Glucose Calcium 02/08/23 02/08/23 02/09/23 08:00 12:40 08:14 WBC RBC Hgb Hct MCV MCH MCHC RDW Plt Count MPV Immature Gran % (Auto) Neut % (Auto) Lymph % (Auto) [place] % (Auto) Eos % (Auto) Baso % (Auto) Lymph # (Auto) [place] # (Auto) Eos # (Auto) Baso # (Auto) Abs Immat Gran (auto) Absolute Neuts (auto) Absolute Nucleated RBC Nucleated RBC % (auto) Sodium Potassium Chloride Carbon Dioxide Anion Gap BUN Creatinine Cancelled Estim Creat Clear Calc Cancelled Estimated GFR Cancelled POC Glucose 182 H 97 Random Glucose Calcium 02/09/23 02/09/23 02/09/23 08:14 12:03 16:27 WBC RBC Hgb Hct MCV MCH MCHC RDW Plt Count MPV Immature Gran % (Auto) Neut % (Auto) Lymph % (Auto) [place] % (Auto) Eos % (Auto) Baso % (Auto) Lymph # (Auto) [place] # (Auto) Eos # (Auto) Baso # (Auto) Abs Immat Gran (auto) Absolute Neuts (auto) Absolute Nucleated RBC Nucleated RBC % (auto) Sodium 136 Potassium 4.5 Chloride 101 Carbon Dioxide 25 Anion Gap 15 BUN 12 Creatinine 0.97 Estim Creat Clear Calc 98.3 Estimated GFR > 60 POC Glucose 302 H 104 Random Glucose 191 H Calcium 9.6 DS: Summary Hospital Course Hospital Course: Patient is a 32-year-old man with history of psychosis, paranoid ideations, possible schizophrenia with recent medication noncompliance because of not having any establish connections to any mental health centers even though he was referred to see a so upon his discharge from [facility].? He has been experiencing anxiety and paranoia recently, leading to his coming to the emergency room.?His medications were resumed with the exception of Geodon. Hospital course: On admission, patient was with paranoid delusions and auditory hallucinations, wanting medication for treatment; no SI or HI throughout his admission. He kept his eyes closed due to a conjunctivitis which was treated with antibiotic eyedrops and fully resolved. Patient mostly kept to himself and stayed in bed for the 1st half of his admission. Patient was continued on Zyprexa which was titrated however had little benefit. Patient asked for medications to be changed to deal with AH and was started on Haldol. On Haldol, AH start to resolve and as it was titrated, fully resolved School Janitor discussed risks/side effects of Haldol prior to discharge which patient understood ask questions about; he decided to continue with medication). He remained with paranoid delusion about being followed however this was significantly reduced in its intensity and no longer bothersome to. As patient's symptoms resolved, his mood significantly improved;his affect became bright and friendly and he was out and about, more social in the milieu. Patient remained in good behavioral and impulse control throughout his time on the unit. Patient placed a 3 day notice but retracted it to give Haldol little longer to work and so outpatient providers could be set up. Patient however was feeling good and was eager to discharge home where he lives with his mother and he placed another 3 day notice. As discharge approached he remained stabilized with AH nearly fully resolved; he was in a good mood, with noticeably brighter affect and appropriately conversational. While he continued to struggle with insight regarding that his paranoid delusion were part of his illness however he has insight/judgment to know that it is the medications that have removed auditory hallucinations and that he needs to continue taking them; he denied any medication side effects and was grateful for the effect; did not want FERNANDEZ. Patient's 3 day notice came due. Patient lives at home with his mother who is supportive at aware of his psychiatric illness. While he remains vulnerable to decompensation, Patient now has outpatient providers established which resolves one of the primary reasons he's been de-compensating and having to repeatedly present for psychiatric admissions. He is not in imminent risk for harm to self or others and his request for discharge honored. Regarding diabetes, patient is poor glucose control has mainly been due to poor adherence with p.o. medication; this time patient does not want nor require to be continued on insulin as consistent adherence with current home medication regimen may prove adequate; he can discuss this further with his outpatient provider. Regarding Haldol Time spent discussing smoking cessation with patient: 3 to 10 minutes Status at Discharge Functional status at discharge: independent ambulation Overall status at discharge: patient is back to baseline Time Spent with Patient Time attestation: Total time managing care of this patient today ____ minutes. Time spent: Less than 30 minutes Discharge Plan Discharge Anticipated Discharge Date/Time: 02/09/23 11:30 Patient Disposition: Home, Self-Care Discharge Diagnosis: Schizophrenia Referrals: Clinical and Support Options Intake [Other] - 02/16/23 10:00 am (In Person Once you have your intake you will be scheduled with a provider for medication management. ) Physician,Unknown J [Primary Care Provider] - 1 Week Discharge Medications: New nicotine (polacrilex) 2 mg Gum 4 mg buccal Q2H PRN (Reason: Nicotine Cravings) 30 Days Qty: 100 0RF haloperidol 10 mg tablet 10 mg PO BID 30 Days Qty: 60 1RF hydroxyzine HCl 50 mg Tablet 50 mg PO Q6H PRN (Reason: Anxiety) 30 Days Qty: 60 0RF trazodone 50 mg Tablet 50 mg PO BEDTIME PRN (Reason: Insomnia) 30 Days Qty: 30 1RF Continued metformin 1,000 mg tablet 1,000 mg PO BID 30 Days Qty: 60 1RF buspirone 10 mg tablet 10 mg PO TID 30 Days Qty: 90 1RF glipizide 5 mg tablet 5 mg PO DAILY 30 Days Qty: 30 1RF metoprolol tartrate 25 mg tablet 12.5 mg PO BID 30 Days Qty: 30 1RF mirtazapine 7.5 mg tablet 7.5 mg PO BEDTIME 30 Days Qty: 30 1RF Changed melatonin 5 mg tablet 5 mg PO BEDTIME PRN (Reason: sleep) 30 Days Qty: 30 1RF Discontinued ziprasidone HCl 80 mg capsule 80 mg PO BID clonidine HCl 0.1 mg tablet 0.1 mg PO BID PRN (Reason: anxiety) olanzapine 5 mg tablet 5 mg PO BID olanzapine 10 mg tablet 10 mg PO BEDTIME lorazepam 0.5 mg tablet 0.5 mg PO BID chlorpromazine 50 mg tablet 150 mg PO BEDTIME PRN (Reason: Agitation) Discharge Orders: Discharge Order (Routine); Ordered 02/10/23 Ordered By: Adrien Snider Diet: Diabetic diet Activity on Discharge: As tolerated Stand Alone Forms: Patient Portal Discharge page Care Plan Goals: Maintain mood and safe behaviors Take medications as prescribed Continue to pursue sobriety Practice coping skills Continue with outpatient providers and reach out to them as needed Health Concerns: Mood stability and behaviors Recent hx of conjunctivitis Plan of Treatment: Follow up with your PCP, psychiatric provider and other outpatient providers regarding above concerns Take medications as prescribed Assessment: Risk assessment at time of discharge:? Patient was interviewed prior to discharge and found to be fully oriented and without any SI or HI. Patient has insight and demonstrates good judgment in terms of wanting to pursue treatment. Patient is not in imminent risk of harm to self or others and has a safety plan that includes presenting to the closest ER or calling 911 if feeling unsafe.? Patient has been observed closely by nursing and unit staff throughout admission; patient has not engaged in any behaviors that suggest dangerousness to self or others and has demonstrated appropriate behaviors and impulse control
[2023-02-09 17:46] VITALS: BP 115/58; PULSE 83
[2023-02-09] MEDS: Mirtazapine 7.5 MG TABLET PO (19:25)
[2023-02-09] MEDS: traZODone HCL 50 MG TABLET PO (19:26)
[2023-02-09 19:29] VITALS: BP 121/72; PULSE 80
[2023-02-10 08:05] VITALS: BP 114/79; PULSE 119; RESP 18; TEMP 36.6; O2SAT 97
[2023-02-10] MEDS: metFORMIN HCl 1,000 MG TABLET 1000 MG PO (08:06)
[2023-02-10] MEDS: HaloperidoL 5 MG TABLET 10 MG PO (08:06)
[2023-02-10] MEDS: Metoprolol Tartrate 12.5 MG HALFTAB PO (08:07)
[2023-02-10] MEDS: busPIRone HCl 10 MG TABLET PO (08:07)
[2023-02-10] MEDS: glipiZIDE 5 MG TABLET PO (08:07)
[2023-02-10 08:28] LABS: Glucose, Whole Blood 205 mg/dL (60-115)
[2023-02-10] MEDS: Insulin Lispro 100 UNIT/ML 3 ML VIAL SUBCUT (08:45)
[2023-02-10] MEDS: hydrOXYzine HCL 50 MG TABLET PO (11:19)
== END 2023-02-10 11:51 | disposition home or self-care (01) | DRG 750 ==
PROVIDERS: Psychiatry & Neurology Psychiatry; Admitting Provider Psychiatry & Neurology Psychiatry; Visit Provider Psychiatry & Neurology Psychiatry
DX: F20.9 Schizophrenia, unspecified (principal); Z91.148 Patient's other noncompliance with medication regimen for other reason; E11.65 Type 2 diabetes mellitus with hyperglycemia; F43.10 Post-traumatic stress disorder, unspecified; J45.20 Mild intermittent asthma, uncomplicated; F17.210 Nicotine dependence, cigarettes, uncomplicated; H10.89 Other conjunctivitis; Z71.6 Tobacco abuse counseling; Z79.84 Long term (current) use of oral hypoglycemic drugs; Z79.899 Other long term (current) drug therapy
CPT/HCPCS: 36415; 80048; 80053; 80061; 82947; 85025